=== PATIENT | female | born 1965 | race Caucasian/White ===

== ENCOUNTER → 2022-06-07 | Outpatient (CLI) | payer BC, SELFPAY ==
[2022-06-15 09:40] LABS: HPV APTIMA, High Risk Negative (Negative)
== END | disposition home or self-care (01) ==
PROVIDERS: PCP Obstetrics & Gynecology; Visit Provider Obstetrics & Gynecology
DX: Z12.4 Encounter for screening for malignant neoplasm of cervix (principal)
CPT/HCPCS: 87624; 88175; G0145

== ENCOUNTER → 2022-10-04 | Outpatient (CLI) | payer BC, SELFPAY ==
--- NOTE | 2022-10-04 09:45 | BI_ITS ---
MAMMOGRAPHY - BILATERAL SCREENING 3-D TOMOSYNTHESIS REASON FOR EXAM: Female, 56 years old. SCREENING PERTINENT HISTORY: Aunt with breast cancer, implants.. TECHNIQUE: 2-D mammograms and 3-D Tomosynthesis of the breast (s) were performed, along with implant displaced views. CAD was performed. COMPARISON: 2018 FINDINGS: The breast composition is composed of scattered fibroglandular density. Scattered benign calcifications are seen. No dense spiculated masses or suspicious microcalcifications are identified. No architectural distortion is identified. There is no skin thickening or retraction. There has been no significant change since the prior study. Implants are intact and free of complication BI/SCRN MAMM (CAD)W/JERAD BILAT IMPRESSION: No mammographic signs of malignancy. Routine yearly mammograms recommended. ASSESSMENT CATEGORY: BIRADS Category 1: Negative. A letter regarding these results will be sent to the patient by the facility within 30 days. FOLLOW UP RECOMMENDATION: Yearly follow up mammogram recommended. (A) Approximately 10% of breast cancers are not detected by mammography. A normal mammogram should not delay biopsy of a clinically suspicious abnormality. Electronically Signed: Kirk De La Paz MD at 12:17 EDT ,
== END | disposition home or self-care (01) ==
LOC: OPBI 09:42
PROVIDERS: PCP Obstetrics & Gynecology; Referring Provider Obstetrics & Gynecology; Visit Provider Obstetrics & Gynecology
DX: Z12.31 Encounter for screening mammogram for malignant neoplasm of breast (principal)
CPT/HCPCS: 77063; 77067

== ENCOUNTER → 2023-10-08 | Outpatient (CLI) | payer BC, SELFPAY ==
--- NOTE | 2023-10-08 12:11 | BI_ITS ---
MAMMOGRAPHY - BILATERAL SCREENING REASON FOR EXAM: Female, 57 years old. Routine annual screening examination. PERTINENT HISTORY: Aunt with breast cancer. Bilateral breast implants. TECHNIQUE: Digital bilateral breast jerad (3D mammographic acquisition) in the CC and MLO projections. 2-D mediolateral oblique (MLO) and craniocaudad (CC) views of both breasts were obtained. CAD: Full Field Digital Mammography with Computer Added Detection was performed. COMPARISON: Comparison is made with prior study dated October 04, 2022. FINDINGS: Breast Composition: There are scattered areas of fibroglandular density. There are no dominant masses or suspicious calcifications. Stable appearance of the bilateral breast implants. No other significant abnormalities are identified. There has been no significant change since the prior study. BI/SCRN MAMM (CAD)W/JERAD BILAT IMPRESSION: Stable bilateral screening mammogram. Yearly follow-up mammogram recommended. (A) ASSESSMENT CATEGORY: BIRADS Category 2: Benign. A letter regarding these results will be sent to the patient by the facility within 30 days. Approximately 10% of breast cancers are not detected by mammography. A normal mammogram should not delay biopsy of a clinically suspicious abnormality. [id number] Electronically Signed: Josh Whipple MD at 13:41 EDT ,
== END | disposition home or self-care (01) ==
LOC: OPBI 12:11
PROVIDERS: PCP Obstetrics & Gynecology; Referring Provider Nurse Practitioner Family; Visit Provider Nurse Practitioner Family
DX: Z12.31 Encounter for screening mammogram for malignant neoplasm of breast (principal)
CPT/HCPCS: 77063; 77067

== ENCOUNTER → 2025-01-25 | Outpatient (CLI) | payer BC, SELFPAY ==
--- NOTE | 2025-01-25 14:00 | RAD_ITS ---
PROCEDURE: CERV SPINE 4 OR 5 VIEWS 01/25/2025 REASON FOR EXAM: NECK PAIN TECHNIQUE: Procedure Code: [facility] Modality: DX Procedure: CERV SPINE 4 OR 5 VIEWS COMPARISON: None. FINDINGS: BONES: No fracture or focal osseous lesion. Anatomic spinal alignment. DISC/DEGENERATIVE CHANGES: Moderate disc space narrowing at C5-C6. The remaining disc spaces are preserved. Multilevel facet arthropathy, most pronounced on the right at C4-C5. Bony narrowing of the right C4-C5 and left C5-C6 neural foramen. SOFT TISSUES: Carotid artery calcification seen bilaterally. RAD/Cerv Spine 4 or 5 Views IMPRESSION: 1. No acute osseous abnormality. 2. Degenerative changes of the spine. Reading Location: [id number]
[2025-01-25 14:50] LABS: Creatinine, Urine (random) 125.00 mg/dL (28.00-217.00); Microalbumin,Random Urine 243.0 mg/L (<20 mg/L)
[2025-01-25 15:09] LABS: Vitamin D,25 Hydroxy 58.7 ng/mL (30-100)
== END | disposition home or self-care (01) ==
PROVIDERS: PCP Internal Medicine; Referring Provider Internal Medicine; Visit Provider Internal Medicine
DX: M54.2 Cervicalgia (principal); E11.9 Type 2 diabetes mellitus without complications; G44.52 New daily persistent headache (NDPH); E55.9 Vitamin D deficiency, unspecified
CPT/HCPCS: 36415; 72050; 82043; 82306; 82570; 85652

== ENCOUNTER → 2025-02-25 | Outpatient (CLI) | payer BC, SELFPAY ==
--- OUTSIDE RECORDS SUMMARY | 2025-02-25 06:57 | XMS RPT_ITS | CCD ---
Author Organization [facility] Team Providers Care Channel Business Manager Name Role Phone NEL TRINH, (WEB SERVICES DEVELOPER) Unavailable Unavaila ble BURESSHUN Unavailable Unavailable BURES, SHUN Garcia Unavailable Unavailable Bures, Shun Unavailable Unavailable Bures, Shun Garcia Unavailable Unavailable Bures, Shun Unavailable Unavailable MontanaLeland Unavailable Unavailable Shun Rivers Unavailable Unavailable Unavailable Tita, Dr. Shun Fletcher Primary Care Unavaila ble Burelita, Dr. Shun Fletcher Attending Unavaila ble Bures, Dr. Shun Fletcher Referring Unavaila ble BURESHUN London Primary Care Unavailable BURESHUN London Attending Unavailable SHUN RIVERS Primary Care Unavailable BureShun london DO Primary Care Provider Dr. Josh Booker MD Primary Care Provider Dr. Jsoh Booker MD Referring Provider Ana BLACK OXIDE COATING EQUIPMENT TENDER-CDiane Attending Provider Fara BL[employer] COATING EQUIPMENT TENDER-CDora Attending Provider [phone] Dr. Josh Booker MD Primary Care Physician Ana BLACK [employer] COATING EQUIPMENT TENDER-CDiane Attending Physician Fara BLACK [employer] COATING EQUIPMENT TENDER-CDora Attending Physician Altagracia LENNON, Dr. Vega Attending Physician Josh Booker Referring Unavailable Diane Perez Attending Unavailable Josh Booker Primary Care Unavailable Josh Booker Referring Unavailable Dora Chaudhari Attending Unavailable Josh Booker Primary Care Unavailable Josh Booker Referring Unavailable Silvia Frias Attending Unavailable Josh Booker Primary Care Unavailable Silvia Frias Primary Care Unavailable Silvia Frias Attending Unavailable Silvia Frias Referring Unavailable Allergies Allergy Classification Reported Allergen(s) Allergy Type Date of Onset Reaction(s) Facility (20 sources) codeine; Translations: [CODEINE] Drug Allergy 03-20-2004 Unknown [facility] Other [facility] Comment on above: +itching Medications Current Medications Medication Drug Class(es) Dates Sig (Normalized) Sig (Original) aspirin 81 mg delayed release oral tablet (2 sources) Platelet Aggregation Inhibitor, Nonsteroidal Anti-inflammatory Drug Start: 10-13-2024 Aspirin (Adult Low Dose Aspirin) 81 mg tablet,delayed release (DR/EC) Active 81 mg PO daily October 13, 2024 12:00am Complies with drug therapy estradiol 0.1 mg/ml vaginal cream (2 sources) Estrogen Start: 09-09-2024 Estradiol 0.01 % (0.1 mg/gram) cream Active 0 VAGINAL DAILY 42.5 0 September 09, 2024 12:00am pea sized amount using finger tip method every night x 2 weeks then 2-3 times a week there after. Complies with drug therapy hyoscyamine sulfate 0.125 mg disintegrating oral tablet (11 sources) Start: 10-13-2024 take 1 tablet by mouth every four hours as needed Hyoscyamine Sulfate 0.125 mg tablet,disintegra ting Active 0.125 mg PO EVERY 4 HOURS as needed October 13, 2024 12:00am Complies with drug therapy Start: 10-07-2023 take 1 tablet by marti th every four hours hyoscyamine 0.125 mg disintegrating tablet Indications: Irritable bowel syndrome without diarrhea Take 1 tablet (0.125 mg) by mouth every 4 hours if needed (ibs). 100 tablet 3 10/07/2023 Active Start: 07-25-2022 End: 10-07-2023 hyoscyamine 0.125 mg SL tabl et Indications: Irritable bowel syndrome without diarrhea PLACE 1 TABLET UNDER THE TONGUE EVERY 4 TO 6 HOURS NEEDED. 100 tablet 3 07/25/2022 10/07/2023 Discontinued (Reorder) Start: 05-15-2014 take 1 tablet under the tongue every four to six hours as needed Hyoscyamine Sulfate 0.125 MG Sublingual Tablet Sublingual PLACE 1 TABLET UNDER THE TONGUE EVERY 4 TO 6 HOURS NEEDED. Quantity: 100 Refills: 3 Ordered: 19-Jul-2021 Shun Rivers DO Start : 15-May-2014 Active Hyoscyamine Sulfate 0.125 mg tablet,disintegrating (1 source) Start: 10-13-2024 take 1 tablet by mouth every four hours as needed Hyoscyamine Sulfate 0.125 mg tablet,disintegrating Active 0.125 mg PO EVERY 4 HOURS as needed October 13, 2024 12:00am loperamide hydrochloride 2 mg oral capsule (8 sources) Opioid Agonist Start: 07-19-2021 End: 10-07-2023 loperamide (Imodium) 2 mg capsule Take by mouth. 07/19/2021 10/07/2023 Discontinued (Therapy completed) 24 hr metFORMIN hydrochloride 500 mg extended release oral tablet (20 sources) Biguanide Start: 12-22-2024 take 1 tablet by mouth once daily Metformin (Glucophage Xr) 500 mg tablet extended release 24 hr Active 500 mg PO daily 90 0 December 22, 2024 12:00am Complies with drug therapy Start: 08-02-2016 End: 12-22-2024 take 1 tablet by mouth once daily Metformin 500 mg tablet Discontinued 500 mg PO daily 90 0 October 13, 2024 3:00pm December 22, 2024 11:59am Start: 08-02-2016 take 1 tablet by marti th every twelve hours at mealtime metFORMIN HCl - 500 MG Oral Tablet TAKE 1 TABLET EVERY 12 HOURS WITH FOOD. Quantity: 180 Refills: 3 Shun Rivers DO Start : 02-Aug-2016 Active Mrpqsmzo-Uvt-Eufc-Fa-Vit K-Lut (Multivitamin Women 50 Plus) 8 mg iron-400 mcg-50 mcg tablet (2 sources) Start: 10-13-2024 take 1 tablet by mouth once daily Inqbrymn-Ajl-Xzpi-Fa-Vit K-Lut (Multivitamin Women 50 Plus) 8 mg iron-400 mcg-50 mcg tablet Active 1 {tbl} PO daily October 13, 2024 12:00am Complies with drug therapy Start: 10-13-2024 take 1 tablet by marti th once daily Isbdznsi-Yum-Oveo-Fa-Vit K-Lut (Multivitamin Women 50 Plus) 8 mg iron-400 mcg-50 mcg tablet Active 1 {tbl} PO daily October 13, 2024 12:00am promethazine hydrochloride 25 mg oral tablet (20 sources) Phenothiazine Start: 10-13-2024 take 1 tablet by mouth every eight hours as needed for nausea Promethazine 25 mg tablet Active 25 mg PO EVERY 8 HOURS as needed for nausea/vomiting October 13, 2024 12:00am Complies with drug therapy Start: 10-07-2023 take 1 tablet by marti th every eight hours for nausea promethazine (Phenergan) 25 mg tablet Indications: Irritable bowel syndrome, unspecified type Take 1 tablet (25 mg) by mouth every 8 hours if needed for nausea or vomiting. 30 tablet 2 10/07/2023 Active Start: 08-28-2016 End: 10-07-2023 promethazine (Phenergan) 25 mg tablet Take by mouth. 08/28/2016 10/07/2023 Discontinued (Reorder) rosuvastatin calcium 40 mg oral tablet (20 sources) HMG-CoA Reductase Inhibitor Start: 03-08-2016 End: 10-13-2024 take 1 tablet by mouth once daily Rosuvastatin 40 mg tablet Active 40 mg PO daily 90 0 October 13, 2024 3:00pm Complies with drug therapy Semaglutide (4 sources) Start: 12-22-2024 Semaglutide 0. 25 mg or 0.5 mg (2 mg/3 mL) pen injector Active 0.5 mg SC EVERY WEEK 9.568 90 0 December 22, 2024 11:59am March 21, 2025 1:00am Complies with drug therapy Start: 09-06-2023 End: 10-13-2024 Semaglutide (Ozempic) 0.25 m g or 0.5 mg (2 mg/3 mL) pen injector Discontinued 0.5 mg SC EVERY WEEK September 06, 2023 12:00am October 13, 2024 3:02pm Start: 09-06-2023 Semaglutide (O zempic) 0.25 mg or 0.5 mg (2 mg/3 mL) pen injector Active 0.5 mg SC EVERY WEEK September 06, 2023 12:00am semaglutide (Ozempic) 0.25 mg or 0.5 mg (2 mg/3 mL) pen injector (2 sources) Start: 10-13-2023 End: 10-12-2024 inject 0.5 mg by subcutaneous injection every week semaglutide (Ozempic) 0.25 mg or 0.5 mg (2 mg/3 mL) pen injector Indications: Type 2 diabetes mellitus with other specified complication, 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 9 mL 3 10/13/2023 10/12/2024 Active Start: 01-17-2023 End: 10-07-2023 semaglutide (Ozempic) 0.25 m g or 0.5 mg (2 mg/3 mL) pen injector Indications: Type 2 diabetes mellitus with other specified complication, unspecified 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 (Multi) INJECT 0.5MG UNDER THE SKIN EVERY 7 DAYS 9 mL 3 01/17/2023 10/07/2023 Discontinued (Reorder) Completed/Discontinued Medications Medication Drug Class(es) Dates Sig (Normalized) Sig (Original) canagliflozin 100 mg oral tablet (11 sources) Sodium-Glucose Cotransporter 2 Inhibitor Start: 12-31-2018 take 1 tablet by mouth once daily Invokana 100 MG Oral Tablet TAKE 1 TABLET BY MOUTH EVERY DAY Quantity: 90 Refills: 3 Shun Rivers DO Start : 31-Dec-2018 Active Start: 11-06-2016 take 1 tablet by marti th once daily Invokana 100 MG Oral Tablet one daily Quantity: 90 Refills: 1 Shun Rivers DO Start : 06-Nov-2016 Active Start: 11-06-2016 take 1 tablet by marti th once daily Invokana 300 MG Oral Tablet TAKE 1 TABLET BY MOUTH EVERY DAY Quantity: 90 Refills: 1 Shun Rivers DO Start : 06-Nov-2016 Active Estriol (3 sources) Start: 09-06-2023 End: 09-09-2024 Estriol (Bulk) 100 % powder Discontinued 1 NMA MC TWICE A WEEK September 06, 2023 12:00am September 09, 2024 1:52pm fenofibrate 160 mg oral tablet (20 sources) Peroxisome Proliferator Receptor alpha Agonist Start: 05-06-2015 End: 09-09-2024 take 1 tablet by mouth once daily Fenofibrate 160 mg tablet Discontinued 160 mg PO daily September 06, 2023 12:00am September 09, 2024 1:52pm Suprep Bowel Prep Kit 17.5-3.13-1.6 GM/177ML Oral Solution (1 source) Start: 05-16-2020 Suprep Bowel P rep Kit 17.5-3.13-1.6 GM/177ML Oral Solution USE DIRECTED. Quantity: 1 Refills: 0 Leland Boyle MD Start : 16-May-2020 Active 2 x 177 ML Bottle Paxlovid (300/100) 20 x 150 MG & 10 x 100MG Oral Tablet Therapy Pack (2 sources) Start: 01-09-2022 End: 01-25-2022 take 1 tablet by mouth twice daily Paxlovid (300/100) 20 x 150 MG & 10 x 100MG Oral Tablet Therapy Pack TAKE 1 DOSE BY MOUTH TWICE DAILY FOR 5 DAYS DIRECTED. MUST START WITHIN 1ST 5 DAYS OF SYMPTOMS. Quantity: 30 Refills: 0 Ordered: 09-Jan-2022 Shun Rivers DO Start : 09-Jan-2022 End : 25-Jan-2022 Complete gfr 87 Start: 01-09-2022 take 1 tablet by marti twice daily Paxlovid (300/100) 20 x 150 MG & 10 x 100MG Oral Tablet Therapy Pack TAKE 1 DOSE BY MOUTH TWICE DAILY FOR 5 DAYS DIRECTED. MUST START WITHIN 1ST 5 DAYS OF SYMPTOMS. Quantity: 30 Refills: 0 Ordered: 09-Jan-2022 Shun Rivers DO Start : 09-Jan-2022 Active gfr 87 0.25 mg, 0.5 mg dose 1.5 ml semaglutide 1.34 mg/ml pen injector (11 sources) Start: 09-24-2019 Ozempic (0.25 or 0.5 MG/DOSE) 2 MG/1.5ML Subcutaneous Solution Pen-injector Inject 0.5mg once weekly Quantity: 3 Refills: 3 Ordered: 21-Dec-2021 Shun Rivers DO Start : 24-Sep-2019 Active Start: 09-24-2019 inject 0.25 mg by lynn bcutaneous injection every week, then inject 0.5 mg by subcutaneous injection every week Ozempic (0.25 or 0.5 MG/DOSE) 2 MG/1.5ML Subcutaneous Solution Pen-injector inject 0.25 mg SC once per week for 4 weeks, then 0.5mg SC per week Quantity: 2 Refills: 2 Shun Rivers DO Start : 24-Sep-2019 Active 1.5 ML Pen Semaglutide (1 source) Start: 10-13-2024 End: 12-22-2024 Semaglutide 1 mg/dose (4 mg/ 3 mL) pen injector Discontinued 1 mg SC EVERY WEEK 3 2 October 13, 2024 3:00pm December 22, 2024 12:24pm Problems Active Problems Problem Classification Problem Date Documented Da te Episodic/Chronic Administrative/social admission (3 sources) Patient encounter status; Translations: [Persons encountering health services in other specified circumstances] 12-21-2024 Episodic Anxiety disorders (18 sources) Anxiety; Translations: [Anxiety state, unspecified] Onset: 07-24-2022 07-24-2022 Chronic Diabetes mellitus with complications (5 sources) Type 2 diabetes mellitus with other specified complication; Translations: [Type 2 diabetes mellitus] Onset: 07-24-2022 Chronic Diabetes mellitus without complication (20 sources) Diabetes mellitus; Translations: [Diabetes mellitus without mention of complication, type II or unspecified type, not stated as uncontrolled] Onset: 07-24-2022 10-07-2023 Chronic Comment on above: Hemoglobin A1c 6.1 t adin. States her normal is around 5-5.5 Diseases of white blood cells (18 sources) Leukocytosis; Translations: [Leukocytosis, unspecified] Onset: 07-24-2022 10-07-2023 Chronic Disorders of lipid metabolism (20 sources) Hyperlipidemia; Translations: [Other and unspecified hyperlipidemia] Onset: 07-24-2022 Chronic Genitourinary symptoms and ill-defined conditions (8 sources) Incontinence; Translations: [Mixed incontinence] 09-06-2023 Chronic Headache; including migraine (18 sources) Migraine; Translations: [Migraine, unspecified, without mention of intractable migraine without mention of status migrainosus] Onset: 07-24-2022 10-07-2023 Chronic Headache; including migraine (3 sources) Frequent headache; Translations: [Frequent headaches] 10-13-2024 Episodic Headache; including migraine (2 sources) Headache; including migraine; Translations: [Headache, unspecified] Onset: 12-22-2024 Malaise and fatigue (3 sources) Fatigue; Translations: [Other fatigue] 09-06-2023 Episodic Menopausal disorders (20 sources) Menopausal symptom; Translations: [Symptomatic menopausal or female climacteric states] Onset: 07-24-2022 10-07-2023 Chronic Nutritional deficiencies (20 sources) Vitamin D deficiency; Translations: [Unspecified vitamin D deficiency] Onset: 07-24-2022 Chronic Nutritional deficiencies (20 sources) Cobalamin deficiency; Translations: [Other B-complex deficiencies] Onset: 07-24-2022 Episodic Other gastrointestinal disorders (19 sources) Irritable bowel syndrome; Translations: [Irritable bowel syndrome] Onset: 07-24-2022 10-07-2023 Chronic Other gastrointestinal disorders (2 sources) Irritable bowel syndrome without diarrhea; Translations: [Irritable bowel syndrome without diarrhea] Onset: 07-24-2022 Chronic Other nutritional; endocrine; and metabolic disorders (19 sources) Hypercalcemia; Translations: [Hypercalcemia] Onset: 07-24-2022 Chronic Other nutritional; endocrine; and metabolic disorders (1 source) Hypercalcemia; Translations: [Hypercalcemia] Onset: 07-24-2022 Chronic Residual codes; unclassified (2 sources) Influenza vaccination declined; Translations: [Immunization not carried out because of patient refusal] 12-22-2024 Episodic Spondylosis; intervertebral disc disorders; other back problems (2 sources) Cervicalgia; Translations: [Cervicalgia] Onset: 12-22-2024 Episodic Unclassified (20 sources) Other abnormal and inconclusive findings on diagnostic imaging of breast; Translations: [Mammography abnormal] Onset: 04-02-2017 Episodic Unclassified (6 sources) Mixed stress and urge incontinence; Translations: [N39.46 - Mixed incontinence] Past or Other Problems Problem Classification Problem Date Documented Da te Episodic/Chronic Medical examination/evaluation (1 source) Encounter for general adult medical examination without abnormal findings; Translations: [Encounter for general adult medical examination without abnormal findings] Onset: 01-14-2017 Episodic Mycoses (17 sources) Mycosis; Translations: [Candidiasis of unspecified site] Resolved: 08-02-2016 Episodic Nausea and vomiting (18 sources) Nausea; Translations: [Nausea alone] Onset: 07-24-2022 07-24-2022 Episodic Nonspecific chest pain (9 sources) Atypical chest pain; Translations: [Other chest pain] Onset: 07-24-2022 07-24-2022 Episodic Other bone disease and musculoskeletal deformities (17 sources) Costal chondritis; Translations: [Tietze's disease] Resolved: 09-09-2018 Episodic Other gastrointestinal disorders (9 sources) Stool DNA-based colorectal cancer screening positive; Translations: [Abnormal feces] Onset: 07-24-2022 07-24-2022 Episodic Other lower respiratory disease (11 sources) H/O: respiratory disease; Translations: [Personal history of other diseases of respiratory system] Resolved: 09-24-2019 Episodic Unclassified (17 sources) Patient encounter status; Translations: [Screening for thyroid disorder] Unclassified (4 sources) Screening status; Translations: [Screening for thyroid disorder] Unclassified (1 source) Onset: 10-07-2023 10-07-2023 Viral infection (4 sources) Disease caused by 2019-nCoV; Translations: [Other specified viral infection] Onset: 03-20-2004 10-07-2023 Episodic NEGATED: Highlighted row has not occurred!Residual codes; unclassified (20 sources) Disease Episodic Results Test Name Value Interpretation Reference Range Facility Cerv Spine 4 or 5 Viewson Cerv Spine 4 or 5 Views [facility] Imaging Services [address] [place] [address] [id number] Cerv Spine 4 or 5 Views MR#: [id number] Acct: [id number] Name: ARIELA CRENSHAW DAISHA Rep #: [id number] : 1965 F 59 From: Hailee Hough MD PCP: Dr. Silvia Frias MD Status: REG CLI Study: Cerv Spine 4 or 5 Views Date of Exam: 01/25/25 Exam# [id number] Ordering Dr: Silvia Frias MD PROCEDURE: CERV SPINE 4 OR 5 VIEWS 01/25/2025 REASON FOR EXAM: NECK PAIN TECHNIQUE: Procedure Code: RADSPC Modality: DX Procedure: CERV SPINE 4 OR 5 VIEWS COMPARISON: None. FINDINGS: BONES: No fracture or focal osseous lesion. Anatomic spinal alignment. DISC/DEGENERATIVE CHANGES: Moderate disc space narrowing at C5-C6. The remaining disc spaces are preserved. Multilevel facet arthropathy, most pronounced on the right at C4-C5. Bony narrowing of the right C4-C5 and left C5-C6 neural foramen. SOFT TISSUES: Carotid artery calcification seen bilaterally. RAD/Cerv Spine 4 or 5 Views IMPRESSION: 1. No acute osseous abnormality. 2. Degenerative changes of the spine. Reading Location: [id number] CC: Dr. Silvia Frias MD Repair Manager: Signed Normal [facility] Erythrocyte Sed Rateon 01-25 SED RATE 6 mm/hr Normal 0-30 [facility] Comment on above: Performed By: #### L 502.0250, L506.1001, L101.9900 #### [facility] [address] [place], [address] Microalb:Creat Ratio,Random URon 01-25-2025 Creatinine [Mass/Vol] 125.00 mg/dL Normal 28.00-217.00 [facility] Comment on above: Performed By: #### L 502.0250, L506.1001, L101.9900 #### [facility] [address] [place], [address] MALB:CREAT 194.4 mg/g CRE High <30 mg/g CRE [facility] Comment on above: Performed By: #### L 502.0250, L506.1001, L101.9900 #### [facility] [address] [place], [address] MICROALBUMIN,UR 243.0 mg/L Normal <20 mg/L [facility] Comment on above: Performed By: #### L 502.0250, L506.1001, L101.9900 #### [facility] [address] [place], [address] Vitamin D,25 Hydroxyon 01-25 Vitamin D 25-OH 58.7 ng/mL Normal 30-100 [facility] Comment on above: Result Comment: Rosana min D Status Deficiency: <20 ng/mL (50nmol/L) Insufficiency: 20-30 ng/mL (50-75 nmol/L) Sufficiency: 30-100 ng/mL (75-250 nmol/L) Toxicity: >100 ng/mL (>250 nmol/L) Performed By: #### L 502.0250, L506.1001, L101.9900 #### [facility] [address] [place], [address] Internal Medicine Office Vis iton 12-21-2024 Internal Medicine Office Visit [facility] Internal Medicine [address] [place] [address] [place] [address] OFFICE VISIT Date of Service: 12/22/24 MR#: [id number] Acct: [id number] Name: ARIELA CRENSHAW Rep #: [id number] : 1965 Provider: Dr. 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 E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 SENT Mechanical Service Representative Required: No Is patient in pain?: No Allergies codeine Allergy (Verified 12/22/24 11:28) Hives Medications ???Medication ???Instructions ???Recorded ???Confirmed ???Type estradiol 0.01% (0.1 mg/gram) See Rx Instructions vaginal DAILY 09/09/24 12/22/24 Rx vaginal cream #42.5 grams aspirin 81 mg tablet,delayed 81 mg PO QDAY 10/13/24 12/22/24 Hi story release (Adult Low Dose Aspirin) hyoscyamine sulfate 0.125 mg 0.125 mg PO Q4 PRN 10/13/24 History disintegrating tablet melspptl-xmud-jcim 8 mg-folic 400 1 tab PO QDAY 10/13/24 12/22/24 H istory mcg-K 50 mcg-lutein 300 mcg tablet (Multivitamin Women 50 Plus) promethazine 25 mg tablet 25 mg PO Q8 PRN nausea/vomiting 12/22/24 History rosuvastatin 40 mg tablet 40 mg PO QDAY #90 tabs 10/13/24 Rx cyclobenzaprine 5 mg tablet 5 mg PO BID PRN muscle spasm #10 1 12/22/24 Rx tabs metformin 500 mg tablet,extended 500 mg PO QDAY #90 tabs 12/22/24 1 Rx release 24 hr (Glucophage XR) semaglutide 0.25 mg or 0.5 mg (2 0.5 mg (0.736 mL) subcut QWEEK 3 1 12/22/24 Rx mg/3 mL) subcutaneous pen injector months #9.568 mL Nurse's Note: Pt states she was having up and downs w/ BG's she states she wants to go back on previous meds for DM. As the ozempic was a lower dose and metformin was not. Pt saw for previous pcp see's no other specialists. She states she had a mammogram last year which was WNL, and has never had a low dose chest CT [facility] Surgical History S/P colonoscopy Hx of breast implants, bilateral History of hysterectomy Family History Mother Depression Diabetes Hypertension High cholesterol Other Heart disease Social History (Updated 12/22/24 @ 11:[address] Silvia Frias MD) adopted: No household members: spouse number of children: 3 service: No current occupational status: unemployed pets and animals: Yes (1) pets and animals: dog(s) sexually active: Yes do you think of yourself as: straight/heterosexual current gender identity: female Smoking Status: Current every day smoker tobacco type: cigarettes Smoking packs per day: 1.5 Smoking cigarettes per day: 30.0 Tobacco: How many years used: 46 quit status: not considering quitting alcohol intake: never substance use type: does not use caffeine: Yes (1-4qd) Type: tea what type of physical activity do you participate in: none frequency: does not exercise seatbelt use: always do you feel safe at home: Yes additional social history: [facility] [place] [facility] [place]ito Label Pinker Questionnaire PQH-9 BMS Over the last 2 weeks, how often have you been bothered by any of the following problems? 1. Little interest or pleasure in doing things: not at all 2. Feeling down, depressed, or hopeless: not at all 3. Trouble falling or staying asleep, or sleeping too much: several days 4. Feeling tired or having little energy: several days 5. Poor appetite or overeating: not at all 6. Feeling bad about yourself - or that you are a failure or have let yourself and your family down: not at all 7. Trouble concentrating on things, such as reading the newspaper or watching television: not at all 8. Moving or speaking so slowly that other people could have noticed? - Or the opposite - being so fidgety or restless that you have been moving around a lot more than usual: not at all 9. Thoughts that you would be better off or of hurting yourself in some way: not at all Total score: 2 If you checked off any problems, how difficult have these problems made it for you to do your work, take care of things at home, or get along with other people?: not difficult at all Source: Developed by Drs. Ludin Christianson, Cat Bess, Anam Ellington and colleagues, with an educational whitney from [employer]. DAVID-7 [facility] [place]ID-7 Feeling nervous, anxious, or on edge: 0 = Not at all Not being able to stop or control worryin = Not at al (more content not included)... Normal [facility] Internal Medicine Office Vis caitlyn 10-13-2024 Internal Medicine Office Visit [facility] [address] [place] [address] [place] [address] OFFICE VISIT Date of Service: 10/13/24 MR#: [id number] Acct: [id number] Name: ARIELA CRENSHAW Rep #: [id number] : 1965 Provider: SARBJIT del rio Age/Sex: 58/F Location[place] [facility] Status: Signed Intake Vital Signs 09/09/24 13:50 10/13/24 14:08 Height 5 ft 10 in 5 ft 10 in Weight: 150 lb 8 oz 149 lb BMI 21.6 21.4 BP 121/57 H 96/52 L Blood Pressure Location Lt brachial Position Sitting Respiration 14 Pulse 100 Pulse Source Monitor Temp 96.9 F L Temp Source Temporal Pulse Oximetry (%) 95 Oxygen Delivery Method room air Intake Visit Reasons: EST NEW PT - FOR MEDS - W ALTAGRACIA IN OCT Mechanical Service Representative Required: No Accompanied by: Self Is patient in pain?: No Allergies codeine Allergy (Verified 10/13/24 14:00) Hives Medications ???Medication ???Instructions ???Recorded ???Confirmed ???Type estradiol 0.01% (0.1 mg/gram) See Rx Instructions vaginal DAILY 09/09/24 09/09/24 Rx vaginal cream #42.5 grams aspirin 81 mg tablet,delayed 81 mg PO QDAY 10/13/24 10/13/24 Hi story release (Adult Low Dose Aspirin) hyoscyamine sulfate 0.125 mg 0.125 mg PO Q4 PRN 10/13/24 History disintegrating tablet metformin 500 mg tablet 500 mg PO QDAY #90 tabs 10/13/24 0 10/13/24 Rx uddzaqln-gepn-xivo 8 mg-folic 400 1 tab PO QDAY 10/13/24 10/13/24 H istory mcg-K 50 mcg-lutein 300 mcg tablet (Multivitamin Women 50 Plus) promethazine 25 mg tablet 25 mg PO Q8 PRN nausea/vomiting 10/13/24 History rosuvastatin 40 mg tablet 40 mg PO QDAY #90 tabs 10/13/24 Rx semaglutide 1 mg/dose (4 mg/3 mL) 1 mg (0.75 mL) subcut QWEEK #3 mL 10/13/24 10/13/24 Rx subcutaneous pen injector PFSH Surgical History Hx of breast implants, bilateral History of hysterectomy Family History (Updated 10/13/24 @ 13:58 by Dora Pepper) Mother Depression Diabetes Hypertension High cholesterol Other Heart disease Social History current occupational status: unemployed Smoking Status: Current every day smoker alcohol intake: never substance use type: does not use caffeine: No what type of physical activity do you participate in: none seatbelt use: always do you feel safe at home: Yes 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 She was seeing PCP in [place] and last saw them last year. She is due for some routine blood work . She is not due for any vaccines. Patient is scheduled for mammogram next month. States she has never had an abnormal mammogram. Patient states last colonoscopy was 3 years ago she states that 1 polyp was removed but it was noncancerous. She is a smoker and need needs refills on medications today. She reports she is eating healthy and is staying active. The patient has been on cholesterol and diabetes medication for several years. She does check her blood sugar at home and reports it has been somewhat elevated. Recently. She states if her blood sugars at 124 or higher she starts to notice symptoms. Symptoms include increased thirst nausea sweating and shakiness. She states she has been increasing her metformin to twice a day if she notices her blood sugars are high states this is done maybe 2 or 3 times a week. She does have GI side effects if taking 1000 mg of metformin at 1 time. Patient states she has not tried extended release metformin. She is taking her medication as prescribed without problems. She states she does have a history of migraine headaches. She will also be seeing a urologist due to incontinence in October. She is taking her medication as prescribed without problems. She denies any current problems with chest pain, palpitations or shortness of breath. She has no further questions or concerns at this time. ROS Const Constitutional: Positive for excessive sweating, headache(s) and change in appetite (depending on blood sugars); No body ache, chills, fatigue, fever(s), frequent falls, night sweats, snoring, weakness or sleep problems Eyes Eyes: Positive for blurry vision; No change in vision, dry eyes, eye pain or Light sensitivity ENT ENT: Positive for sinus pressure (frequent sinus headaches depending on enviromental factors), headache(s) and neck pain; No abnormal hearing, ear or mastoid pain, tinnitus, dizziness/vertigo, balance problems, nasal congestion, sinus pain, dry mouth, difficulty swallowing or sore throat Resp Respiratory: No cough, chest congestion, shortness of breath, snoring or wheezing Cardio Cardiology: Positive for excessive sweating; No chest pain at rest, chest (more content not included)... Normal [facility] - Hematology and Cell countsOrdered By: Dora Chaudhari on 10-13-2024 HbA1c (Bld) [Mass fraction] 6.1 % 4.2-6.3 [facility] [employer] Mechan[employer] Office Visit Reporton 09-09-2024 [employer] Mechan[employer] Office Visit Report [facility] [address], [address] [place] [address] OFFICE VISIT Date of Service: 09/09/24 MR#: [id number] Acct: [id number] Name: ARIELA CRENSHAW Rep #: [id number] : 1965 Provider: SARBJIT Brooke Age/Sex: 58/F Location: [facility] Status: Signed Intake Vital Signs 09/06/23 11:04 09/09/24 13:50 Height 5 ft 10 in 5 ft 10 in Weight: 150 lb 8 oz BMI 21.6 BP 121/57 H 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 Is patient in pain?: No Allergies codeine Allergy (Verified 09/09/24 13:51) Hives Medications ???Medication ???Instructions ???Recorded ???Confirmed ???Type metformin 500 mg tablet 500 mg PO QDAY 09/06/23 09/09/24 H istory rosuvastatin 40 mg tablet 40 mg PO QDAY 09/06/23 09/09/24 Hi story semaglutide 0.25 mg or 0.5 mg (2 0.5 mg subcut QWEEK 09/06/2309/09 History mg/3 mL) subcutaneous pen injector (Ozempic) estradiol 0.01% (0.1 mg/gram) See Rx Instructions vaginal DAILY 09/09/24 09/09/24 Rx vaginal cream #42.5 grams Is last menstrual period known: No Patient : No : No PFSH Surgical History Hx of breast implants, bilateral History of hysterectomy Family History Other Heart disease Social History current occupational status: unemployed Smoking Status: Current every day smoker alcohol intake: never substance use type: does not use caffeine: No what type of physical activity do you participate in: none seatbelt use: always do you feel safe at home: Yes 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 Date Name GA/Weeks Outcome Route Bth Weight Infant Gen Labor Lgth Anesthesia Del Locatn Provider FOB Unknown Tito Carreon Unknown Andre Unknown Ephraim HPI Encounter for routine gynecological examination Details: ARIELA CRENSHAW is a 58 year old who presents for annual exam. She reports she continues to have vaginal burning. Using estradiol cream; using inconsistently. She continues to smoke daily; has been smoking at least a pack a day for over 45 years. Last PAP: 2022, has had hyst; heavy bleeding prior. History of abnormal PAP: none Last mammogram: 2023 - normal History of abnormal mammogram: Colon cancer screening: Yes; 3-4 years ago. Other preventative health care screenings: Has appointment with [facility] in October Female Reproductive History Questions: metorrhagia: No, sexually active: Yes, dyspareunia: No and PCB: No Menopausal Treatment: Yes Vaginal Estrogen ROS Const Constitutional: Denies chills, fatigue, fever(s), headache(s) or weight loss Eyes Eyes: Denies change in vision ENT ENT: Denies dizziness Cardio Card: Denies chest pain Resp Resp: Denies cough GI GI: Denies abdominal pain, constipation or nausea : Reports urinary frequency, urinary incontinence and urinary urgency; Denies difficulty voiding, dysuria, hematuria, nipple discharge, pelvic pain, prolapse symptoms, vaginal discharge, vaginal dryness, vaginal odor or vaginal pruritus Skin Skin/Breast: Denies alopecia, rash, breast mass, breast pain, breast skin changes or nipple discharge Neuro Neuro: Denies dizziness Psych Psych: Denies anxiety or depression Endo Endo: Denies cold intolerance, excessive sweating or heat intolerance Exam Const General: cooperative, healthy appearing, no acute distress and well groomed Nutritional Appearance: well nourished Orientation: oriented x3 HENMT Head: normal to inspection and normocephalic Neck Thyroid: thyroid normal Chest Chest palpation inspection: normal inspection of the chest Breast inspection: normal inspection of the breasts and normal inspection of the axillae Breast palpation: normal palpation of the breasts, normal palpation of the axillae and no axillary lymphadenopathy Resp Effort Inspection: normal respiratory effort and able to speak in complete sentences GI Inspection: normal to inspection Palpation: soft and no hepatosplenomegaly External Female Exam: normal external appearance and normal appearance of the urethra Urethra: normal appearance of the urethra Speculum Exam - Vagina: normal appearance of the vagina, normal vaginal discharge, vagina atrophic, no lesions and nontender Speculum Exam - Cervix: absent Bimanual Exam- Vagina Uterus: normal bimanual exam and uterus absent Bimanual Exam- Adnexa, other: no masses Pelvic Support: other (l (more content not included)... Normal [facility] CBC W Auto Differential pane l (Bld)on 09-30-2023 Basophils (Bld) [#/Vol] 0.07 x10*3/uL Normal 0.00-0.10 [facility] Comment on above: Performed By: #### 5 7021-8 #### SHARDA DUMONT ([id number]) [facility] ([facility]) [address] [place] [address] 15076 Basophils/100 WBC (Bld) 0.7 % Normal 0.0-2.0 [facility] Comment on above: Performed By: #### 5 7021-8 #### SHARDA DUMONT ([id number]) [facility] ([facility]) [address] [place] [address] 92660 Eosinophils (Bld) [#/Vol] 0.82 x10*3/uL High 0.00-0.70 [facility] Comment on above: Performed By: #### 5 7021-8 #### SHARDA DUMONT ([id number]) [facility] ([facility]) [address] [place] [address] 53093 Eosinophils/100 WBC (Bld) 8.0 % Normal 0.0-6.0 [facility] Comment on above: Performed By: #### 5 7021-8 #### SHARDA DUMONT ([id number]) [facility] ([facility]) [address] [place] [address] 94434 Erythrocyte distribution width (RBC) [Ratio] 12.0 % Normal 11.5-14.5 [facility] Comment on above: Performed By: #### 5 7021-8 #### SHARDA DUMONT ([id number]) [facility] ([facility]) [address] [place] [address] 37290 Hematocrit (Bld) [Volume fraction] 46.9 % High 36.0-46.0 [facility] Comment on above: Performed By: #### 5 7021-8 #### SHARDA DUMONT ([id number]) [facility] ([facility]) [address] [place] [address] Hemoglobin (Bld) [Mass/Vol] 15.3 g/dL Normal 12.0-16.0 [facility] Comment on above: Performed By: #### 5 7021-8 #### SHARDA DUMONT ([id number]) [facility] ([facility]) [address] [place], [place] [address] Immature granulocytes (Bld) [#/Vol] 0.02 x10*3/uL Normal 0.00-0.70 [facility] Comment on above: Performed By: #### 5 7021-8 #### SHARDA DUMONT ([id number]) [facility] ([facility]) [address] [place], [place] [address] Immature granulocytes/100 WBC (Bld) 0.2 % Normal 0.0-0.9 [facility] Comment on above: Result Comment: Samantha ture Granulocyte Count (IG) includes promyelocytes, myelocytes and metamyelocytes but does not include bands. Percent differential counts (%) should be interpreted in the context of the absolute cell counts (cells/UL). Performed By: #### 5 7021-8 #### SHARDA DUMONT ([id number]) [facility] ([facility]) [address] [place] [address] 94282 Lymphocytes (Bld) [#/Vol] 3.98 x10*3/uL Normal 1.20-4.80 [facility] Comment on above: Performed By: #### 5 7021-8 #### SHARDA DUMONT ([id number]) [facility] ([facility]) [address] [place] [address] 16667 Lymphocytes/100 WBC (Bld) 38.8 % Normal 13.0-44.0 [facility] Comment on above: Performed By: #### 5 7021-8 #### SHARDA DUMONT ([id number]) [facility] ([facility]) [address] [place] [address] 49510 MCH (RBC) [Entitic mass] 33.0 pg Normal 26.0-34.0 [facility] Comment on above: Performed By: #### 5 7021-8 #### SHARDA DUMONT ([id number]) [facility] ([facility]) [address] [place] [address] 90239 MCHC (RBC) [Mass/Vol] 32.6 g/dL Normal 32.0-36.0 [facility] Comment on above: Performed By: #### 7021-8 #### SHARDA DUMONT ([id number]) [facility] ([facility]) [address] [place] [address] 89892 MCV (RBC) [Entitic vol] 101 fL High 80-100 [facility] Comment on above: Performed By: #### 7021-8 #### SHARDA DUMONT ([id number]) [facility] ([facility]) [address] [place] [address] 63759 Monocytes (Bld) [#/Vol] 0.56 x10*3/uL Normal 0.10-1.00 [facility] Comment on above: Performed By: #### 5 7021-8 #### SHARDA DUMONT ([id number]) [facility] ([facility]) [address] [place] [address] 10083 Monocytes/100 WBC (Bld) 5.5 % Normal 2.0-10.0 [facility] Comment on above: Performed By: #### 5 7021-8 #### SHARDA DUMONT ([id number]) [facility] ([facility]) [address] [place] [address] 26701 Neutrophils (Bld) [#/Vol] 4.80 x10*3/uL Normal 1.20-7.70 [facility] Comment on above: Result Comment: Perc ent differential counts (%) should be interpreted in the context of the absolute cell counts (cells/uL). Performed By: #### 5 7021-8 #### SHARDA DUMONT ([id number]) [facility] ([facility]) [address] [place] [address] 61458 Neutrophils/100 WBC (Bld) 46.8 % Normal 40.0-80.0 [facility] Comment on above: Performed By: #### 5 7021-8 #### SHARDA DUMONT ([id number]) [facility] ([facility]) [address] [place] [address] 15349 Nucleated RBC/100 WBC (Bld) [Ratio] 0.0 /100 WBCs Normal 0.0-0.0 [facility] Comment on above: Performed By: #### 5 7021-8 #### SHARDA DUMONT ([id number]) [facility] ([facility]) [address] [place] [address] 08239 Platelets (Bld) [#/Vol] 335 x10*3/uL Normal 150-450 [facility] Comment on above: Performed By: #### 5 7021-8 #### SHARDA DUMONT ([id number]) [facility] ([facility]) [address] [place] [address] 02995 RBC (Bld) [#/Vol] 4.63 x10*6/uL Normal 4.00-5.20 [facility] Comment on above: Performed By: #### 5 7021-8 #### SHARDA DUMONT ([id number]) [facility] ([facility]) [address] [place] [address] 47232 WBC (Bld) [#/Vol] 10.3 x10*3/uL Normal 4.4-11.3 [facility] Comment on above: Performed By: #### 5 7021-8 #### SHARDA DUMONT ([id number]) [facility] ([facility]) [address] [place] [address] 84256 Calcidiolon 09-30-2023 25-hydroxyvitamin D3 [Mass/Vol] 32 ng/mL Normal 30-100 [facility] Comment on above: Order Comment: Defic iency: < 20 ng/ml Insufficiency: 20-29 ng/ml Sufficiency: 30-100 ng/ml This assay accurately quantifies the sum of Vitamin D3, 25-Hydroxy and Vitamin D2,25-Hydroxy. Performed By: #### 1 989-3 #### SHARDA DUMONT ([id number]) [facility] ([facility]) [address] [place] [address] Cobalaminson 09-30-2023 Cobalamin (Vitamin B12) [Mass/Vol] 188 pg/mL Low 211-911 [facility] Comment on above: Performed By: #### 2 132-9 #### SHARDA DUMONT ([id number]) [facility] ([facility]) [address] [place], [place] [address] Comprehensive metabolic 2000 panelon 09-30-2023 Albumin BCP dye [Mass/Vol] 4.3 g/dL Normal 3.4-5.0 [facility] Comment on above: Performed By: #### 2 4323-8 #### SHARDA DUMONT ([id number]) [facility] ([facility]) [address] [place] [address] 85647 ALP [Catalytic activity/Vol] 72 U/L Normal 33-110 [facility] Comment on above: Performed By: #### 2 4323-8 #### SHARAD DUMONT ([id number]) [facility] ([facility]) [address] [place] [address] 87043 ALT With P-5'-P [Catalytic activity/Vol] 11 U/L Normal 7-45 [facility] Comment on above: Result Comment: Julieth ents treated with Sulfasalazine may generate falsely decreased results for ALT. Performed By: #### 2 4323-8 #### SHARDA DUMONT ([id number]) [facility] ([facility]) [address] [place] [address] 54902 Anion gap [Moles/Vol] 12 mmol/L Normal 10-20 [facility] Comment on above: Performed By: #### 2 4323-8 #### SHARDA DUMONT ([id number]) [facility] ([facility]) [address] [place] [address] AST With P-5'-P [Catalytic activity/Vol] 13 U/L Normal 9-39 [facility] Comment on above: Performed By: #### 2 432-8 #### SHARDA DUMONT ([id number]) [facility] ([facility]) [address] [place] [address] Bilirubin [Mass/Vol] 0.3 mg/dL Normal 0.0-1.2 [facility] Comment on above: Performed By: #### 2 4322-8 #### SHARDA DUMONT ([id number]) [facility] ([facility]) [address] [place] [address] 77014 Calcium [Mass/Vol] 9.9 mg/dL Normal 8.6-10.3 [facility] Comment on above: Performed By: #### 2 4322-8 #### SHARDA DUMONT ([id number]) [facility] ([facility]) [address] [place] [address] 99258 Chloride [Moles/Vol] 106 mmol/L Normal 98-107 [facility] Comment on above: Performed By: #### 2 432-8 #### SHARDA DUMONT ([id number]) [facility] ([facility]) [address] [place] [address] 68800 CO2 [Moles/Vol] 25 mmol/L Normal 21-32 [facility] Comment on above: Performed By: #### 2 4322-8 #### SHARDA DUMONT ([id number]) [facility] ([facility]) [address] [place] [address] 99394 Creatinine [Mass/Vol] 0.94 mg/dL Normal 0.50-1.05 [facility] Comment on above: Performed By: #### 2 4323-8 #### SHARDA DUMONT ([id number]) [facility] ([facility]) [address] [place] [address] 13669 Glomerular filtration rate/1.73 sq M.predicted 71 mL/min/1.73m*2 Normal >60 [facility] Comment on above: Result Comment: Calc ulations of estimated GFR are performed using the 2020 CKD-EPI Study Refit equation without the race variable for the IDMS-Traceable creatinine methods. https://jasn.asnjournals.org/content//ASN.369905411 8 Performed By: #### 2 4323-8 #### SHARDA DUMONT ([id number]) [facility] ([facility]) [address] [place] [address] 54628 Glucose [Mass/Vol] 137 mg/dL High 74-99 [facility] Comment on above: Performed By: #### 2 3-8 #### SHARDA DUMONT ([id number]) [facility] ([facility]) [address] [place] [address] 34813 Potassium [Moles/Vol] 4.1 mmol/L Normal 3.5-5.3 [facility] Comment on above: Performed By: #### 2 3-8 #### SHARDA DUMONT ([id number]) [facility] ([facility]) [address] [place] [address] 74088 Protein [Mass/Vol] 6.4 g/dL Normal 6.4-8.2 [facility] Comment on above: Performed By: #### 2 4323-8 #### SHARDA DUMONT ([id number]) [facility] ([facility]) [address] [place] [address] 09248 Sodium [Moles/Vol] 139 mmol/L Normal 136-145 [facility] Comment on above: Performed By: #### 2 3-8 #### SHARDA DUMONT ([id number]) [facility] ([facility]) [address] [place] [address] 24774 Urea nitrogen [Mass/Vol] 16 mg/dL Normal 6-23 [facility] Comment on above: Performed By: #### 2 4323-8 #### SHARDA DUMONT ([id number]) [facility] ([facility]) [address] [place] [address] 28333 HbA1c (Bld) [Mass fraction]o n 09-30-2023 Average glucose Estimated from glycated hemoglobin (Bld) [Mass/Vol] 114 mg/dL Normal Not Established [facility] Comment on above: Order Comment: Diagn osis of Diabetes-Adults Non-Diabetic: < or = 5.6% Increased risk for developing diabetes: 5.7-6.4% Diagnostic of diabetes: > or = 6.5% Performed By: #### 4 548-4 #### SHARDA DUMONT ([id number]) [facility] ([facility]) [address] [place] [address] 07382 Hemoglobin A1c/Hemoglobin.to kiya 09-30-2023 HbA1c (Bld) [Mass fraction] 5.6 % Normal see below [facility] Comment on above: Order Comment: Diagn osis of Diabetes-Adults Non-Diabetic: < or = 5.6% Increased risk for developing diabetes: 5.7-6.4% Diagnostic of diabetes: > or = 6.5% Performed By: #### 4 548-4 #### SHARDA DUMONT ([id number]) [facility] ([facility]) [address] [place] [address] 31394 Lipid 1996 panelon 4 Cholesterol [Mass/Vol] 283 mg/dL High 0-199 [facility] Comment on above: Result Comment: Age Desirable Borderline High High 0-19 Y 0 - 169 170 - 199 >/= 200 20-24 Y 0 - 189 190 - 224 >/= 225 >24 Y 0 - 199 200 - 239 >/= 240 All ranges are based on fasting samples. Specific therapeutic targets will vary based on patient-specific cardiac risk. Pediatric guidelines reference:Pediatrics 2011, 128(S5).Adult guidelines reference: NCEP ATPIII Guidelines,GITA 2001, 258:2486-97 Venipuncture immediately after or during the administration of Metamizole may lead to falsely low results. Testing should be performed immediately prior to Metamizole dosing. Performed By: #### 2 4331-1 #### SHARDA DUMONT (49752) [facility] ([facility]) [address] [place] [address] 76331 Cholesterol in HDL [Mass/Vol] 34.0 mg/dL Normal [facility] Comment on above: Result Comment: Age Very Low Low Normal High 0-19 Y < 35 < 40 40-45 ---- 20-24 Y ---- < 40 >45 ---- >24 Y ---- < 40 40-60 >60 Performed By: #### 2 4331-1 #### SHARDA DUMONT ([id number]) [facility] ([facility]) [address] [place] [address] 46060 Cholesterol in LDL [Mass/Vol] 195 mg/dL High <=99 [facility] Comment on above: Result Comment: Near Borderline AGE Desirable Optimal High High Very High 0-19 Y 0 - 109 --- 110-129 >/= 130 ---- 20-24 Y 0 - 119 --- 120-159 >/= 160 ---- >24 Y 0 - 99 100-129 130-159 160-189 >/=190 Performed By: #### 2 4331-1 #### SHARDA DUMONT ([id number]) [facility] ([facility]) [address] [place] [address] 15754 Cholesterol in VLDL [Mass/Vol] 54 mg/dL High 0-40 [facility] Comment on above: Performed By: #### 2 4331-1 #### SHARDA DUMONT ([id number]) [facility] ([facility]) [address] [place] [address] 61608 CHOLESTEROL/HDL RATIO 8.3 Normal [facility] Comment on above: Result Comment: Ref Values Desirable < 3.4 High Risk > 5.0 Performed By: #### 2 4331-1 #### SHARDA DUMONT ([id number]) [facility] ([facility]) [address] [place] [address] 47405 NON HDL CHOLESTEROL 249 mg/dL High 0-149 [facility] Comment on above: Result Comment: Age Desirable Borderline High High Very High 0-19 Y 0 - 119 120 - 144 >/= 145 >/= 160 20-24 Y 0 - 149 150 - 189 >/= 190 ---- >24 Y 30 mg/dL above LDL Cholesterol goal Performed By: #### 2 4331-1 #### SHARDA DUMONT ([id number]) [facility] ([facility]) [address] [place] [address] 90891 Triglyceride [Mass/Vol] 268 mg/dL High 0-149 [facility] Comment on above: Result Comment: Age Desirable Borderline High High Very High 0 D-90 D 19 - 174 ---- ---- ---- 91 D- 9 Y 0 - 74 75 - 99 >/= 100 ---- 10-19 Y 0 - 89 90 - 129 >/= 130 ---- 20-24 Y 0 - 114 115 - 149 >/= 150 ---- >24 Y 0 - 149 150 - 199 200- 499 >/= 500 Venipuncture immediately after or during the administration of Metamizole may lead to falsely low results. Testing should be performed immediately prior to Metamizole dosing. Performed By: #### 2 4331-1 #### SHARDA DUMONT ([id number]) [facility] ([facility]) [address] [place] [address] 31235 TSH WITH REFLEX TO FREE T4 I F ABNORMALon 09-30-2023 TSH Qn 1.94 m[IU]/L Normal 0.44-3.98 [facility] Comment on above: Order Comment: TSH t esting is performed using different testing methodology at [facility] than at other [facility]. Direct result comparisons should only be made within the same method. Performed By: #### T HYDS #### SHARDA DUMONT ([id number]) [facility] ([facility]) [address] [place], [place] [address] Urinalysis complete panel (U )on 09-30-2023 Appearance (U) Turbid Normal Clear [facility] Comment on above: Performed By: #### 2 4356-8 #### SHARDA DUMONT ([id number]) [facility] [facility]) [address] [place] [address] [id number] Bilirubin (U) [Mass/Vol] Negative Normal NEGATIVE [facility] Comment on above: Performed By: #### 2 4356-8 #### SHARDA DUMONT ([id number]) [facility] ([facility]) [address] [place] [address] 65780 Color (U) Yellow Normal Light-Yellow, Yellow, Dark-Yellow [facility] Comment on above: Performed By: #### 2 4356-8 #### SHARDA DUMONT ([id number]) [facility] ([facility]) [address] [place] [address] 97569 Glucose Auto test strip (U) [Mass/Vol] Normal Normal Normal [facility] Comment on above: Performed By: #### 2 4356-8 #### SHARDA DUMONT ([id number]) [facility] ([facility]) [address] [place] [address] 65435 Ketones (U) [Mass/Vol] Negative Normal NEGATIVE [facility] Comment on above: Performed By: #### 2 4356-8 #### SHARDA DUMONT ([id number]) [facility] ([facility]) [address] [place] [address] 87670 Leukocyte esterase Auto test strip Ql (U) 25 Sherie/???L Abnormal NEGATIVE [facility] Comment on above: Performed By: #### 2 4356-8 #### SHARDA DUMONT ([id number]) [facility] ([facility]) [address] [place], [place] [address] Nitrite Auto test strip Ql (U) Negative Normal NEGATIVE [facility] Comment on above: Performed By: #### 2 6-8 #### SHARDA DUMONT ([id number]) [facility] ([facility]) [address] [place] [address] 95760 pH (U) 6.0 [pH] Normal 5.0, 5.5, 6.0, 6.5, 7.0, 7.5, 8.0 [facility] Comment on above: Performed By: #### 2 4356-8 #### SHARDA DUMONT ([id number]) [facility] ([facility]) [address] [place] [address] 90843 Protein (U) [Mass/Vol] 10 (TRACE) Normal NEGATIVE, 10 (TRACE), 20 (TRACE) [facility] Comment on above: Performed By: #### 2 4356-8 #### SHARDA DUMONT ([id number]) [facility] ([facility]) [address] [place] [address] 68527 RBC (U) [#/Vol] Negative Normal NEGATIVE [facility] Comment on above: Performed By: #### 2 4356-8 #### SHARDA DUMONT ([id number]) [facility] ([facility]) [address] [place] [address] Specific gravity (U) [Rel density] 1.018 Normal 1.005-1.035 [facility] Comment on above: Performed By: #### 2 4356-8 #### SHARDA DUMONT ([id number]) [facility] ([facility]) [address] [place] [address] Urobilinogen (U) [Mass/Vol] Normal Normal Normal [facility] Comment on above: Performed By: #### 2 4356-8 #### SHARDA DUMONT ([id number]) [facility] ([facility]) [address] [place] [address] Urinalysis microscopic panel Auto Ql (U)on 09-30-2023 Epithelial cells.squamous Auto (Urine sed) [#/Area] 1-9 (SPARSE) Normal Reference range not established. [facility] Comment on above: Performed By: #### 5 3315-8 #### SHARDA DUMONT ([id number]) [facility] ([facility]) [address] [place] [address] Hyaline casts Auto (Urine sed) [#/Area] 1+ /LPF Abnormal NONE [facility] Comment on above: Performed By: #### 5 3315-8 #### SHARDA DUMONT ([id number]) [facility] ([facility]) [address] [place] [address] Mucus Auto (Urine sed) [#/Area] 1+ /LPF Normal Reference range not established. [facility] Comment on above: Performed By: #### 5 3315-8 #### SHARDA DUMONT ([id number]) [facility] ([facility]) [address] [place] [address] RBC Auto (Urine sed) [#/Area] >20 Abnormal NONE, 1-2, 3-5 [facility] Comment on above: Performed By: #### 5 3315-8 #### SHARDA DUMONT ([id number]) [facility] ([facility]) [address] [place] [address] [place] [address] WBC Auto (Urine sed) [#/Area] 1-5 Normal 1-5, NONE [facility] Comment on above: Performed By: #### 5 3315-8 #### ROBIN JULIA ([id number]) [facility] ([facility]) [address] [place] [address] Blood Pressure Cuff Sizeon 1 03-27-2021 Blood Pressure Cuff Size Adult [facility] Work Phone: HM 50+ Yearson 01-25-2022 HM 50+ Years Diagnoses/Problems Health Maintenance/Risks Encounter for preventive health examination (V70.0) (Z00.00) Assessed Diabetes mellitus (250.00) (E11.9) B12 deficiency (266.2) (E53.8) Hypercalcemia (275.42) (E83.52) Hyperlipidemia (272.4) (E78.5) Abnormal screening mammogram (793.80) (R92.8) Orders Abnormal screening mammogram Mamm - Screening Mammogram w/ Tomosynthesis; Status:Hold For - Scheduling; Requested for:[id number]; Perform: Radiology Services Imaging; Due:[id number];Ordered; For:Abnormal screening mammogram; Ordered By:Shun Rivers; Radiologist to Determine Optimal Study : Y What are the patient's signs and symptoms ? : Annual Screening Mammogram Patient Discussion/Summary #1. Health maintenance. Fasting bloodwork today we will call for results in one to 2 weeks. 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 Mammogram ordered today. Colonoscopy is up-to-date. #2. Diabetes type 2. Hemoglobin A1c of 5.9 is excellent Continue current meds excellent improvement. Diabetes can be progressive (requiring more medications with time). If we can't regulate your Hemoglobin A1C with current meds we will add more in the future and consider Insulin therapy. Persistently elevated blood sugars can damage small blood vessels and nerves in the brain, eyes, heart, kidneys and feet. You should be getting yearly dilated eye exams. You should be inspecting your feet daily for any injuries. Also do not walk bare foot indoors or outside. Weight loss (to a BMI 30) and regular exercise (30 minutes per day) can greatly improve your need for medications for your diabetes. A hemoglobin A1c (3 month blood sugar average) will be checked 1-4 times per year to help monitor you blood sugar control.We are aggressive at treating diabetes because it is a significant risk factor for heart disease and stroke. Please reduce the amount of carbohydrates you are eating, and instead try eating more lean protein such as fish, turkey, and chicken. Please try to follow an ADA ([place] [employer]) diet. Chief Complaint CPE History of Present [id number] female for wellness visit. Review of Systems Constitutional: NO F, chills, or sweats Eyes: no blurred vision or visual disturbance ENT: no hearing loss, no congestion, no nasal discharge, no hoarseness and no sore throat. Cardiovascular: no chest pain, no edema, no palps and no syncope. Respiratory: no cough,no s.o.b. and no wheezing Gastrointestinal: no abdominal pain, No C/D no N/V, no blood in stools Genitourinary denies any urinary symptoms Musculoskeletal: no arthralgias, no back pain and no myalgias. Integumentary: no new skin lesions and no rashes. Neurological: No numbness and tingling no weakness Endocrine chronic fatigue, not checking glucose readings at home Psych?mild anxiety, doing well without medication at this time Active Problems Problems Abnormal screening mammogram (793.80) (R92.8) Anxiety (300.00) (F41.9) Atypical chest pain (786.59) (R07.89) B12 deficiency (266.2) (E53.8) COVID-19 (079.89) (U07.1) Diabetes mellitus (250.00) (E11.9) Elevated WBCs (288.60) (D72.829) Hypercalcemia (275.42) (E83.52) Hyperlipidemia (272.4) (E78.5) Irritable bowel syndrome (564.1) (K58.9) Menopausal symptoms (627.2) (N95.1) Migraines (346.90) (G43.909) Nausea (787.02) (R11.0) Positive colorectal cancer screening using Cologuard test (787.7) (R19.5) Screening for AAA (abdominal aortic aneurysm) (V81.2) (Z13.6) Screening for colon cancer (V76.51) (Z12.11) Screening for thyroid disorder (V77.0) (Z13.29) Vitamin D insufficiency (268.9) (E55.9) Past Medical History Problems History of Costochondritis, acute (733.6) (M94.0) Resolved Date: 09 Sep 2018 History of acute bacterial sinusitis (V12.69) (Z87.09) Resolved Date: 24 Sep 2019 History of Yeast infection (112.9) (B37.9) Resolved Date: 02 Aug 2016 Family History Mother Family history of hyperlipidemia (V18.19) (Z83.438) Father Family history of cardiac disorder (V17.49) (Z82.49) Family history of hypertension (V17.49) (Z82.49) Social History Problems Current smoker (305.1) (F17.200) Daily caffeine consumption, 4-5 servings a day No alcohol use No drug use Allergies Medication codeine Recorded By: May Schmidt; 01/20/2015 12:53:55 PM Current Meds Medication NameInstruction Fenofibrate 160 MG Oral TabletTAKE 1 TABLET BY MOUTH EVERY DAY Hyoscyamine Sulfate 0.125 MG Sublingual Tablet SublingualPLACE 1 TABLET UNDER THE TONGUE EVERY 4 TO 6 HOURS NEEDED. Loperamide HCl - 2 MG Oral CapsuleGIVE 1 CAPSULE BY MOUTH TWICE DAILY NEEDED metFORMIN HCl - 500 MG Oral TabletTAKE 1 TABLET BY MOUTH EVERY DAY Ozempic (0.25 or 0.5 MG/DOSE) 2 MG/1.5ML Subcutaneous Solution Pen-injectorInject 0.5mg once weekly Promethazine HCl - 25 MG Oral TabletTAKE 1 TO 2 TABLETS BY MOUTH EVERY 6 HOURS NEEDED FOR NAUSEA OR VOMITING Rosuvastatin Calcium 40 MG Oral TabletTAKE 1 TABLET BY (more content not included)... Normal Touchworks CBC AND DIFFERENTIALon 12-25 % AUTOMATED IMMATURE GRAN 0.4 % Normal 0.0 - 0.9 [facility] [place] Comment on above: Result Comment: Samantha ture Granulocyte Count (IG) includes promyelocytes, myelocytes and metamyelocytes but does not include bands. Percent differential counts (%) should be interpreted in the context of the absolute cell counts (cells/L). Performed By: #### C BCDF #### [facility] [address] [place] [address] Basophils (Bld) [#/Vol] 0.05 10*3/uL Normal 0.00 - 0.10 [facility] [place] Comment on above: Performed By: #### C BCDF #### [facility] [address] [place] [address] Basophils/100 WBC (Bld) 0.4 % Normal 0.0 - 2.0 [facility] [place] Comment on above: Performed By: #### C BCDF #### [facility] [address] [place] [address] Eosinophils (Bld) [#/Vol] 0.80 10*3/uL High 0.00 - 0.70 [facility] [place] Comment on above: Performed By: #### C BCDF #### [facility] [address] [place] [address] Eosinophils/100 WBC (Bld) 7.2 % Normal 0.0 - 6.0 [facility] [place] Comment on above: Performed By: #### C BCDF #### [facility] [address] [place] [address] Erythrocyte distribution width (RBC) [Ratio] 12.4 % Normal 11.5 - 14.5 [facility] [place] Comment on above: Performed By: #### C BCDF #### [facility] [address] [place] [address] Hematocrit (Bld) [Volume fraction] 40.7 % Normal 36.0 - 46.0 [facility] [place] Comment on above: Performed By: #### C BCDF #### [facility] [address] [place] [address] Hemoglobin (Bld) [Mass/Vol] 13.8 g/dL Normal 12.0 - 16.0 [facility] [place] Comment on above: Performed By: #### C BCDF #### [facility] [address] [place] [address] Lymphocytes (Bld) [#/Vol] 3.10 10*3/uL Normal 1.20 - 4.80 [facility] [place] Comment on above: Performed By: #### C BCDF #### [facility] [address] [place] [address] Lymphocytes/100 WBC (Bld) 27.7 % Normal 13.0 - 44.0 [facility] [place] Comment on above: Performed By: #### C BCDF #### [facility] [address] [place] [address] MCHC (RBC) [Mass/Vol] 33.9 g/dL Normal 32.0 - 36.0 [facility] [place] Comment on above: Performed By: #### C BCDF #### [facility] [address] [place] [address] MCV (RBC) [Entitic vol] 99 fL Normal 80 - 100 [facility] [place] Comment on above: Performed By: #### C BCDF #### [facility] [address] [place] [address] Monocytes (Bld) [#/Vol] 0.63 10*3/uL Normal 0.10 - 1.00 [facility] [place] Comment on above: Performed By: #### C BCDF #### [facility] [address] [place] [address] Monocytes/100 WBC (Bld) 5.6 % Normal 2.0 - 10.0 [facility] [place] Comment on above: Performed By: #### C BCDF #### [facility] [address] [place] [address] Neutrophils (Bld) [#/Vol] 6.56 10*3/uL Normal 1.20 - 7.70 [facility] [place] Comment on above: Performed By: #### C BCDF #### [facility] [address] [place] [address] Neutrophils/100 WBC (Bld) 58.7 % Normal 40.0 - 80.0 [facility] [place] Comment on above: Performed By: #### C BCDF #### [facility] [address] [place] [address] NUCLEATED RBC 0.0 /100 WBC Normal 0.0-0.0 [facility] Comment on above: Performed By: #### C BCDF #### [facility] [address] [place] [address] Platelets (Bld) [#/Vol] 365 10*3/uL Normal 150 - 450 [facility] [place] Comment on above: Performed By: #### C BCDF #### [facility] [address] [place] [address] RBC 4.12 x10E12/L Normal 4.00 - 5.20 [facility] Comment on above: Performed By: #### C BCDF #### [facility] [address] [place] [address] WBC (Bld) [#/Vol] 11.2 10*3/uL Normal 4.4 - 11.3 [facility] [place] Comment on above: Performed By: #### C BCDF #### [facility] [address] [place] [address] COMPREHENSIVE PANELon 2021 Albumin [Mass/Vol] 4.4 g/dL Normal 3.4 - 5.0 [facility] Comment on above: Performed By: #### C MP #### [facility] [address] [place] [address] ALP [Catalytic activity/Vol] 52 U/L Normal 33 - 110 [facility] [place] Comment on above: Performed By: #### C MP #### [facility] [address] [place] [address] ALT [Catalytic activity/Vol] 12 U/L Normal 7 - 45 [facility] [place] Comment on above: Result Comment: Julieth ents treated with Sulfasalazine may generate falsely decreased results for ALT. Performed By: #### C MP #### [facility] [address] [place] [address] Anion gap [Moles/Vol] 13 mmol/L Normal 10 - 20 [facility] [place] Comment on above: Performed By: #### C MP #### [facility] [address] [place] [address] AST [Catalytic activity/Vol] 19 U/L Normal 9 - 39 [facility] [place] Comment on above: Performed By: #### C MP #### [facility] [address] [place] [address] Bilirubin [Mass/Vol] 0.3 mg/dL Normal 0.0 - 1.2 [facility] [place] Comment on above: Performed By: #### C MP #### [facility] [address] [place] [address] Calcium [Mass/Vol] 10.7 mg/dL High 8.6 - 10.6 [facility] Comment on above: Performed By: #### C MP #### [facility] [address] [place] [address] Chloride [Moles/Vol] 104 mmol/L Normal 98 - 107 [facility] [place] Comment on above: Performed By: #### C MP #### [facility] [address] [place] [address] Creatinine [Mass/Vol] 0.80 mg/dL Normal 0.50 - 1.05 [facility] [place] Comment on above: Performed By: #### C MP #### [facility] [address] [place] [address] GFR/1.73 sq M.predicted among non-blacks MDRD (S/P/Bld) [Vol rate/Area] 87 mL/min/{1.73_m2} Normal >90 [facility] [place] Comment on above: Result Comment: CALC ULATIONS OF ESTIMATED GFR ARE PERFORMED USING THE 2020 CKD-EPI STUDY REFIT EQUATION WITHOUT THE RACE VARIABLE FOR THE IDMS-TRACEABLE CREATININE METHODS. https://jasn.asnjournals.org/content//ASN.993933914 8 Performed By: #### C MP #### [facility] [address] [place] [address] Glucose [Mass/Vol] 124 mg/dL High 74 - 99 [facility] Comment on above: Performed By: #### C MP #### [facility] [address] [place] [address] HCO3 (Bld) [Moles/Vol] 29 mmol/L Normal 21 - 32 [facility] [place] Comment on above: Performed By: #### C MP #### [facility] [address] [place] [address] Potassium [Moles/Vol] 3.6 mmol/L Normal 3.5 - 5.3 [facility] [place] Comment on above: Performed By: #### C MP #### [facility] [address] [place] [address] Protein [Mass/Vol] 6.9 g/dL Normal 6.4 - 8.2 [facility] Comment on above: Performed By: #### C MP #### [facility] [address] [place] [address] Sodium [Moles/Vol] 142 mmol/L Normal 136 - 145 [facility] Comment on above: Performed By: #### C MP #### [facility] [address] [place] [address] Urea nitrogen [Mass/Vol] 15 mg/dL Normal 6 - 23 [facility] [place] Comment on above: Performed By: #### C MP #### [facility] [address] [place] [address] Complete Blood Count + Diffe barbtialon 12-25-2021 Basophils/100 WBC (Bld) 0.4 % 0.0 - 2.0 [facility] Work Phone: Erythrocyte distribution width (RBC) [Ratio] 12.4 % See Below [facility] 5825 Work Phone: Comment on above: Reference Range: 11. 5 - 14.5 Hematocrit (Bld) [Volume fraction] 40.7 % See Below [facility] 5839 Work Phone: Comment on above: Reference Range: 36. 0 - 46.0 Hemoglobin (Bld) [Mass/Vol] 13.8 g/dL See Below [facility] 5812 Work Phone: Comment on above: Reference Range: 12. 0 - 16.0 Lymphocytes/100 WBC (Bld) 27.7 % See Below [facility] a 5817 Work Phone: Comment on above: Reference Range: 13. 0 - 44.0 MCHC (RBC) [Mass/Vol] 33.9 g/dL See Below [facility] 5845 Work Phone: Comment on above: Reference Range: 32. 0 - 36.0 MCV (RBC) [Entitic vol] 99 fL 80 - 100 [facility] 5829 Work Phone: Monocytes/100 WBC (Bld) 5.6 % 2.0 - 10.0 [facility] 5890 Work Phone: Neutrophils/100 WBC (Bld) 58.7 % See Below [facility] 5866 Work Phone: Comment on above: Reference Range: 40. 0 - 80.0 Platelets (Bld) [#/Vol] 365 10*3/uL 150 - 450 [facility] 5800 Work Phone: RBC (Bld) [#/Vol] 4.12 {x10E12/L} See Below [facility] a 5803 Work Phone: Comment on above: Reference Range: 4.0 0 - 5.20 WBC (Bld) [#/Vol] 11.2 10*3/uL 4.4 - 11.3 [facility] a 5881 Work Phone: Complete Blood Count + Differential 0.05 {x10E9/L} See Below [facility] 5826 Work Phone: Comment on above: Reference Range: 0.0 0 - 0.10 Complete Blood Count + Differential 0.80 {x10E9/L} above high threshold See Below [facility] a 5825 Work Phone: Comment on above: Reference Range: 0.0 0 - 0.70 Complete Blood Count + Differential 0.63 {x10E9/L} See Below [facility] a 5821 Work Phone: Comment on above: Reference Range: 0.1 0 - 1.00 Complete Blood Count + Differential 3.10 {x10E9/L} See Below [facility] 5850 Work Phone: Comment on above: Reference Range: 1.2 0 - 4.80 Complete Blood Count + Differential 6.56 {x10E9/L} See Below [facility] 5850 Work Phone: Comment on above: Reference Range: 1.2 0 - 7.70 Complete Blood Count + Differential 7.2 % 0.0 - 6.0 [facility] 5806 Work Phone: Complete Blood Count + Differential 0.4 % 0.0 - 0.9 [facility] 5874 Work Phone: Comment on above: Immature Granulocyte Count (IG) includes promyelocytes, myelocytes and metamyelocytes but does not include bands. Percent differential counts (%) should be interpreted in the context of the absolute cell counts (cells/L). Complete Blood Count + Differential 0.0 {/100_WBC} 0.0-0.0 [facility] 5891 Work Phone: HEMOGLOBIN A1Con 12-25-2021 Glucose [Mass/Vol] 111 mg/dL Normal [facility] Comment on above: Performed By: #### H BA1E #### [facility] [address] [place] [address] HbA1c (Bld) [Mass fraction] 5.5 % Normal [facility] [place] Comment on above: Result Comment: Diag nosis of Diabetes-Adults Non-Diabetic: < or = 5.6% Increased risk for developing diabetes: 5.7-6.4% Diagnostic of diabetes: > or = 6.5% . Monitoring of Diabetes Age (y) Therapeutic Goal (%) Adults: >18 <7.0 Pediatrics: 13-18 <7.5 7-12 <8.0 0- 6 7.5-8.5 [place] [employer]. Diabetes Care 33(S1), Mar 2009. Performed By: #### H BA1E #### [facility] [address] [place] [address] Hemoglobin A1Con 12-25-2021 Glucose [Mass/Vol] 111 mg/dL [facility] 5724 Work Phone: HbA1c (Bld) [Mass fraction] 5.5 % [facility] a 5827 Work Phone: Comment on above: Diagnosis of Diabete s-Adults Non-Diabetic: < or = 5.6% Increased risk for developing diabetes: 5.7-6.4% Diagnostic of diabetes: > or = 6.5%. Monitoring of Diabetes Age (y) Therapeutic Goal (%) Adults: >18 <7.0 Pediatrics: 13-18 <7.5 7-12 <8.0 0- 6 7.5-8.5 [place] [employer]. Diabetes Care 33(S1), Mar 2009. LIPID PANEL (CORONARY RISK 2 )on 12-25-2021 Cholesterol [Mass/Vol] 100 mg/dL Normal 0 - 199 [facility] [place] Comment on above: Result Comment: . AGE DESIRABLE BORDERLINE HIGH HIGH 0-19 Y 0 - 169 170 - 199 >/= 200 20-24 Y 0 - 189 190 - 224 >/= 225 >24 Y 0 - 199 200 - 239 >/= 240 All ranges are based on fasting samples. Specific therapeutic targets will vary based on patient-specific cardiac risk. . Pediatric guidelines reference:Pediatrics 2011, 128(S5). Adult guidelines reference: NCEP ATPIII Guidelines, GITA 2001, 258:2486-97 . Venipuncture immediately after or during the administration of Metamizole may lead to falsely low results. Testing should be performed immediately prior to Metamizole dosing. Performed By: #### L IPID #### [facility] [address] [place] [address] Cholesterol in HDL [Mass/Vol] 36.7 mg/dL Abnormal [facility] [place] Comment on above: Result Comment: . AGE VERY LOW LOW NORMAL HIGH 0-19 Y < 35 < 40 40-45 ---- 20-24 Y ---- < 40 >45 ---- >24 Y ---- < 40 40-60 >60 . Performed By: #### L IPID #### [facility] [address] [place] [address] Cholesterol in LDL [Mass/Vol] 32 mg/dL Normal 0 - 99 [facility] [place] Comment on above: Result Comment: . NEAR BORD AGE DESIRABLE OPTIMAL HIGH HIGH VERY HIGH 0-19 Y 0 - 109 --- 110-129 >/= 130 ---- 20-24 Y 0 - 119 --- 120-159 >/= 160 ---- >24 Y 0 - 99 100-129 130-159 160-189 >/=190 . Performed By: #### L IPID #### [facility] [address] [place] [address] Cholesterol in VLDL [Mass/Vol] 31 mg/dL Normal 0 - 40 [facility] [place] Comment on above: Performed By: #### L IPID #### [facility] [address] [place] [address] Cholesterol.total/ Cholesterol in HDL [Mass ratio] 2.7 {ratio} Normal [facility] [place] Comment on above: Result Comment: REF VALUES DESIRABLE < 3.4 HIGH RISK > 5.0 Performed By: #### L IPID #### [facility] [address] [place] [address] Triglyceride [Mass/Vol] 155 mg/dL High 0 - 149 [facility] [place] Comment on above: Result Comment: . AGE DESIRABLE BORDERLINE HIGH HIGH VERY HIGH 0 D-90 D 19 - 174 ---- ---- ---- 91 D- 9 Y 0 - 74 75 - 99 >/= 100 ---- 10-19 Y 0 - 89 90 - 129 >/= 130 ---- 20-24 Y 0 - 114 115 - 149 >/= 150 ---- >24 Y 0 - 149 150 - 199 200- 499 >/= 500 . Venipuncture immediately after or during the administration of Metamizole may lead to falsely low results. Testing should be performed immediately prior to Metamizole dosing. Performed By: #### L IPID #### [facility] [address] [place] [address] Laboratory - Chemistry and C hemistry - challengeon 12-25-2021 Albumin BCP dye [Mass/Vol] 4.4 g/dL 3.4 - 5.0 [facility] a 5832 Work Phone: ALP [Catalytic activity/Vol] 52 U/L 33 - 110 [facility] a 5888 Work Phone: ALT With P-5'-P [Catalytic activity/Vol] 12 U/L 7 - 45 [facility] a 5823 Work Phone: Comment on above: Patients treated wit h Sulfasalazine may generate falsely decreased results for ALT. Anion gap [Moles/Vol] 13 mmol/L 10 - 20 [facility] Work Phone: AST With P-5'-P [Catalytic activity/Vol] 19 U/L 9 - 39 [facility] a 5848 Work Phone: Bilirubin [Mass/Vol] 0.3 mg/dL 0.0 - 1.2 [facility] a 5841 Work Phone: Calcium [Mass/Vol] 10.7 mg/dL above high threshold 8.6 - 10.6 [facility] a 5872 Work Phone: Chloride [Moles/Vol] 104 mmol/L 98 - 107 [facility] a 5888 Work Phone: CO2 [Moles/Vol] 29 mmol/L 21 - 32 [facility] a 5845 Work Phone: Creatinine [Mass/Vol] 0.80 mg/dL See Below [facility] a 5844 Work Phone: Comment on above: Reference Range: 0.5 0 - 1.05 Glucose [Mass/Vol] 124 mg/dL above high threshold 74 - 99 -[facility] a 5835 Work Phone: Potassium [Moles/Vol] 3.6 mmol/L 3.5 - 5.3 [facility] a 5859 Work Phone: Protein [Mass/Vol] 6.9 g/dL 6.4 - 8.2 [facility] a 5821 Work Phone: Sodium [Moles/Vol] 142 mmol/L 136 - 145 -Ind [facility] a 5800 Work Phone: TSH Qn 0.88 m[IU]/L See Below [facility] a 5848 Work Phone: Comment on above: Reference Range: 0.4 4 - 3.98 TSH testing is performed using different testing methodology at [facility] than at other [facility]. Direct result comparisons should only be made within the same method. Urea nitrogen [Mass/Vol] 15 mg/dL 6 - 23 [facility] a 5864 Work Phone: Lipid Panelon 12-25-2021 Cholesterol [Mass/Vol] 100 mg/dL 0 - 199 [facility] 5839 Work Phone: Comment on above: . AGE DESIRABLE BORD RUBY HIGH HIGH 0-19 Y 0 - 169 170 - 199 >/= 200 20-24 Y 0 - 189 190 - 224 >/= 225 >24 Y 0 - 199 200 - 239 >/= 240 All ranges are based on fasting samples. Specific therapeutic targets will vary based on patient-specific cardiac risk.. Pediatric guidelines reference:Pediatrics 2011, 128(S5). Adult guidelines reference: NCEP ATPIII Guidelines, GITA 2001, 258:2486-97. Venipuncture immediately after or during the administration of Metamizole may lead to falsely low results. Testing should be performed immediately prior to Metamizole dosing. Cholesterol in HDL [Mass/Vol] 36.7 mg/dL Abnormal [facility] 5861 Work Phone: Comment on above: . AGE VERY LOW LOW N ORMAL HIGH 0-19 Y < 35 < 40 40-45 ---- 20- 24 Y ---- < 40 >45 ---- >24 Y ---- < 40 40-60 >60. Cholesterol in LDL [Mass/Vol] 32 mg/dL 0 - 99 [facility] 5828 Work Phone: Comment on above: . NEAR BORD AGE CESAR RABLE OPTIMAL HIGH HIGH VERY HIGH 0-19 Y 0 - 109 --- 110-129 >/= 130 ---- 20-24 Y 0 - 119 --- 120-159 >/= 160 ---- >24 Y 0 - 99 100-129 130-159 160-189 >/=190. Cholesterol.total/ Cholesterol in HDL [Mass ratio] 2.7 {ratio} [facility] 5819 Work Phone: Comment on above: REF VALUESDESIRABLE < 3.4HIGH RISK > 5.0 Triglyceride [Mass/Vol] 155 mg/dL above high threshold 0 - 149 [facility] 5818 Work Phone: Comment on above: . AGE DESIRABLE BORD RUBY HIGH HIGH VERY HIGH 0 D-90 D 19 - 174 ---- ---- ----91 D- 9 Y 0 - 74 75 - 99 >/= 100 ---- 10-19 Y 0 - 89 90 - 129 >/= 130 ---- 20-24 Y 0 - 114 115 - 149 >/= 150 ---- >24 Y 0 - 149 150 - 199 200- 499 >/= 500. Venipuncture immediately after or during the administration of Metamizole may lead to falsely low results. Testing should be performed immediately prior to Metamizole dosing. Lipid Panel 31 mg/dL 0 - 40 [facility] a 5825 Work Phone: No Panel Informationon 12-25 87 {mL/min/1.73m2} >90 MP-[facility] ep[facility] gar 5850 Work Phone: Comment on above: CALCULATIONS OF ENIO MATED GFR ARE PERFORMED USING THE 2020 CKD-EPI STUDY REFIT EQUATION WITHOUT THE RACE VARIABLE FOR THE IDMS-TRACEABLE CREATININE METHODS.https://jasn.asnjournals.org/content//ASN.2 816443817 TSH WITH REFLEX TO FREE T4 I F ABNORMALon 12-25-2021 TSH Qn 0.88 m[IU]/L Normal 0.44 - 3.98 [facility] Comment on above: Result Comment: TSH testing is performed using different testing methodology at [facility] than at other [facility]. Direct result comparisons should only be made within the same method. Performed By: #### T HYDS #### [facility] [address] [place] [address] UA MICROSCOPICon 12-25-2021 BACTERIA 1+ /HPF Abnormal [facility] [place] Comment on above: Performed By: #### U AMIC #### [facility] [address] [place] [address] CA OXALATE CRYSTAL 2+ /HPF Abnormal [facility] Comment on above: Performed By: #### U AMIC #### [facility] [address] [place] [address] Mucus Ql (Urine sed) 1+ /LPF Normal [facility] [place] Comment on above: Performed By: #### U AMIC #### [facility] [address] [place] [address] RBC (U) [#/Vol] /uL Normal 0-5 [facility] Comment on above: Performed By: #### U AMIC #### [facility] [address] [place] [address] SQUAMOUS EPITH. CELLS 3 /HPF Normal [facility] [place] Comment on above: Performed By: #### U AMIC #### [facility] [address] [place] [address] TRANSITIONAL EPITH.CELLS <1 Normal [facility] [place] Comment on above: Performed By: #### U AMIC #### [facility] [address] [place] [address] WBC 1 /HPF Normal 0-5 [facility] [place] Comment on above: Performed By: #### U AMIC #### [facility] [address] [place] [address] URINALYSISon 12-25-2021 Appearance (U) CLEAR Normal CLEAR [facility] Comment on above: Performed By: #### U A #### [facility] [address] [place] [address] Bilirubin Ql (U) Negative Normal NEGATIVE [facility] Comment on above: Performed By: #### U A #### [facility] [address] [place] [address] Color (U) YELLOW Normal STRAW,YELLOW [facility] [place] Comment on above: Performed By: #### U A #### [facility] [address] [place] [address] Glucose Ql (U) Negative Normal NEGATIVE [facility] Comment on above: Performed By: #### U A #### [facility] [address] [place] [address] Hemoglobin Ql (U) Negative Normal NEGATIVE [facility] Comment on above: Performed By: #### U A #### [facility] [address] [place] [address] Ketones Ql (U) Negative Normal NEGATIVE [facility] Comment on above: Performed By: #### U A #### [facility] [address] [place] [address] Leukocyte esterase Test strip Ql (U) TRACE Abnormal NEGATIVE [facility] [place] Comment on above: Performed By: #### U A #### [facility] [address] [place] [address] Nitrite Ql (U) Negative Normal NEGATIVE [facility] Comment on above: Performed By: #### U A #### [facility] [address] [place] [address] pH (U) 7.0 [pH] Normal 5.0 - 8.0 [facility] [place] Comment on above: Performed By: #### U A #### [facility] [address] [place] [address] Protein Ql (U) Negative Normal NEGATIVE [facility] Comment on above: Performed By: #### U A #### [facility] [address] [place] [address] Specific gravity (U) [Rel density] 1.008 Normal 1.005 - 1.035 [facility] [place] Comment on above: Performed By: #### U A #### [facility] [address] [place] [address] Urobilinogen (U) [Mass/Vol] mg/dL Normal 0.0 - 1.9 [facility] [place] Comment on above: Performed By: #### U A #### [facility] [address] [place] [address] Urinalysison 12-25-2021 Color (U) YELLOW See Below [facility] a 5850 Work Phone: Comment on above: Reference Range: STR AW,YELLOW Glucose Ql (U) Negative NEGATIVE [facility] a 5850 Work Phone: Ketones Ql (U) Negative NEGATIVE [facility] a 5850 Work Phone: Leukocyte esterase Test strip Ql (U) TRACE Abnormal NEGATIVE [facility] a 5850 Work Phone: pH (U) 7.0 [pH] 5.0 - 8.0 [facility] a 5850 Work Phone: Protein (U) [Mass/Vol] Negative NEGATIVE [facility] a 5850 Work Phone: RBC (U) [#/Vol] Negative NEGATIVE [facility] a 5850 Work Phone: Specific gravity (U) [Rel density] 1.008 1 See Below [facility] a 5850 Work Phone: Comment on above: Reference Range: 1.0 05 - 1.035 Urinalysis Negative NEGATIVE [facility] a 5862 Work Phone: [phone] Urinalysis <2.0 0.0 - 1.9 [facility] a 5850 Work Phone: [phone] Urinalysis CLEAR CLEAR [facility] a 5850 Work Phone: [phone] Urinalysis, Microscopicon Urinalysis, Microscopic 2+ Abnormal [facility] a 5850 Work Phone: [phone] Urinalysis, Microscopic 1+ Abnormal [facility] a 5886 Work Phone: Urinalysis, Microscopic <1 0-5 [facility] a 5850 Work Phone: [phone] Urinalysis, Microscopic 3 {/HPF} [facility] a 5850 Work Phone: [phone] Urinalysis, Microscopic 1 {/HPF} 0-[facility] a 5872 Work Phone: [phone] VITAMIN B12on 12-25-2021 Cobalamin (Vitamin B12) [Mass/Vol] 410 pg/mL Normal 211 - 911 [facility] [place] Comment on above: Performed By: #### V TB12 #### [facility] [address] [place] [address] VITAMIN D, 25-HYDROXYon 12-16 0-2021 VITAMIN D, 25-HYDROXY 71 ng/mL Normal [facility] [place] Comment on above: Result Comment: . DEFICIENCY: < 20 NG/ML INSUFFICIENCY: 20-29 NG/ML SUFFICIENCY: 30-100 NG/ML THIS ASSAY ACCURATELY QUANTIFIES THE SUM OF VITAMIN D3, 25-HYDROXY AND VIT D2,25-HYDROXY. Performed By: #### V TDOH #### [facility] [address] [place] [address] Vitamin B12, Serumon 022 Cobalamin (Vitamin B12) [Mass/Vol] 410 pg/mL 211 - 911 [facility] a 5815 Work Phone: Vitamin D 25-Hydroxyon 12-25 25-hydroxyvitamin D3 [Mass/Vol] 71 ng/mL [facility] a 5850 Work Phone: Comment on above: .DEFICIENCY: < 20 NG /MLINSUFFICIENCY: 20-29 NG/MLSUFFICIENCY: 30-100 NG/MLTHIS ASSAY ACCURATELY QUANTIFIES THE SUM OFVITAMIN D3, 25-HYDROXY AND VIT D2,25-HYDROXY. Ultrasound AAA Screeningon 0 05-11-2020 Ultrasound AAA Screening Interpreted by: ELSIE 10:23MRN: [id number] Name: ARIELA CRENSHAW STUDY:US AAA SCREENING; 05/11/2020 9:54 am INDICATION:mother and GM had AAA's. COMPARISON:None. ORDERING CLINICIAN:SHUN RIVERS TECHNIQUE:Transabdomina l imaging of the abdominal aorta was performed.Grayscale, color, and spectral Doppler were performed. FINDINGS:The abdominal aorta measures 2.5 cm in its maximal AP diameter and2.3 cm in its maximal transverse diameter. Note is made of mildatherosclerotic calcifications in the wall of the aorta. There is nothrombotic layering. The visualized portions of the right common iliac artery measures0.9 x 1.0 cm. The visualized portions of the left common iliac artery measures 1.0x 1.0 cm IMPRESSION:No evidence for abdominal aortic aneurysm. I personally reviewed the images/study and I agree with the residentfindings as stated. This study was interpreted at [place], [place].Electronically signed by: ELSIE 05/11/20 10:23 Normal [facility] melindasoledad [facility] Work Phone: Comment on above: ORDER REVISED TO A S AAA SCREENING BY RADIOLOGIST; Original Order Number: [id number] Metabolic Panelon 04-14-2020 HbA1c (Bld) [Mass fraction] 5.5 % 3.2-6.2 [facility] [place] Work Phone: Complete Blood Count + Cassie huffman 09-24-2019 Basophils (Bld) [#/Vol] 0.06 {x10E9/L} See Below [facility] [place] Work Phone: Comment on above: Reference Range: 0.0 0 - 0.10 Basophils/100 WBC (Bld) 0.5 % 0.0 - 2.0 [facility] [place] Work Phone: Eosinophils (Bld) [#/Vol] 0.62 {x10E9/L} See Below -[facility] [place] Work Phone: Comment on above: Reference Range: 0.0 0 - 0.70 Eosinophils/100 WBC (Bld) 5.1 % 0.0 - 6.0 [facility] Work Phone: Erythrocyte distribution width (RBC) [Ratio] 12.4 % See Below -[facility] Work Phone: Comment on above: Reference Range: 11. 5 - 14.5 Hematocrit (Bld) [Volume fraction] 46.0 % See Below -[facility] [place] Work Phone: Comment on above: Reference Range: 36. 0 - 46.0 Hemoglobin (Bld) [Mass/Vol] 15.5 g/dL See Below -[facility] Work Phone: Comment on above: Reference Range: 12. 0 - 16.0 Lymphocytes (Bld) [#/Vol] 3.44 {x10E9/L} See Below -[facility] Work Phone: Comment on above: Reference Range: 1.2 0 - 4.80 Lymphocytes/100 WBC (Bld) 28.5 % See Below [facility] Work Phone: Comment on above: Reference Range: 13. 0 - 44.0 MCHC (RBC) [Mass/Vol] 33.7 g/dL See Below [facility] Work Phone: Comment on above: Reference Range: 32. 0 - 36.0 MCV (RBC) [Entitic vol] 98 fL 80 - 100 -[facility] Work Phone: Monocytes (Bld) [#/Vol] 0.64 {x10E9/L} See Below -[facility] Work Phone: Comment on above: Reference Range: 0.1 0 - 1.00 Monocytes/100 WBC (Bld) 5.3 % 2.0 - 10.0 [facility] Work Phone: Neutrophils (Bld) [#/Vol] 7.25 {x10E9/L} See Below -[facility] Work Phone: Comment on above: Reference Range: 1.2 0 - 7.70 Neutrophils/100 WBC (Bld) 60.2 % See Below [facility] Work Phone: Comment on above: Reference Range: 40. 0 - 80.0 Platelets (Bld) [#/Vol] 329 {x10E9/L} 150 - 450 -[facility] Work Phone: RBC (Bld) [#/Vol] 4.71 {x10E12/L} See Below -[facility] Work Phone: Comment on above: Reference Range: 4.0 0 - 5.20 WBC (Bld) [#/Vol] 0.0 {/100_WBC} 0.0-0.0 [facility] Work Phone: WBC (Bld) [#/Vol] 12.1 {x10E9/L} above high threshold 4.4 - 11.3 [facility] Work Phone: Complete Blood Count + Differential 0.4 % 0.0 - 0.9 [facility] Work Phone: Comment on above: Immature Granulocyte Count (IG) includes promyelocytes, myelocytes and metamyelocytes but does not include bands. Percent differential counts (%) should be interpreted in the context of the absolute cell counts (cells/L). Hemoglobin A1Con 09-24-2019 HbA1c (Bld) [Mass fraction] 9.4 % [facility] Work Phone: Comment on above: Diagnosis of Diabete s-Adults Non-Diabetic: < or = 5.6% Increased risk for developing diabetes: 5.7-6.4% Diagnostic of diabetes: > or = 6.5%. Monitoring of Diabetes Age (y) Therapeutic Goal (%) Adults: >18 <7.0 Pediatrics: 13-18 <7.5 7-12 <8.0 0- 6 7.5-8.5 [place] [employer]. Diabetes Care 33(S1), Mar 2009. HbA1c (Bld) [Mass fraction] 223 {MG/DL} [facility] Work Phone: IO Hgb A1Con 09-24-2019 HbA1c (Bld) [Mass fraction] 9.9 % Abnormal 4.4-6.4% [facility] Work Phone: IO Microalbumin, Urine Quant itativeon 09-24-2019 Albumin Ql (U) 10 mg/L [facility] Work Phone: Albumin/Creatinine DL <= 20 mg/L (U) [Mass ratio] <30mg/g Normal [facility] Work Phone: Creatinine (U) [Mass/Vol] 50 mg/dL [facility] Work Phone: IO UA (automated w/o microsc opy)on 09-24-2019 Protein (U) [Mass/Vol] Negative [facility] Work Phone: IO UA (automated w/o microscopy) Negative [facility] Work Phone: IO UA (automated w/o microscopy) 1.015 [facility] Work Phone: IO UA (automated w/o microscopy) 6.0 [facility] Work Phone: IO UA (automated w/o microscopy) Normal (0.2-1.0 mg/dl) [facility] Work Phone: IO UA (automated w/o microscopy) Yellow [facility] Work Phone: IO UA (automated w/o microscopy) Clear [facility] Work Phone: IO UA (automated w/o microscopy) 1000 mg/dl [facility] Work Phone: Lipid Panelon 09-24-2019 Cholesterol [Mass/Vol] 185 mg/dL 0 - 199 [facility] Work Phone: Comment on above: . AGE DESIRABLE BORD RUBY HIGH HIGH 0-19 Y 0 - 169 170 - 199 >/= 200 20-24 Y 0 - 189 190 - 224 >/= 225 >24 Y 0 - 199 200 - 239 >/= 240 All ranges are based on fasting samples. Specific therapeutic targets will vary based on patient-specific cardiac risk.. Pediatric guidelines reference:Pediatrics 2011, 128(S5). Adult guidelines reference: NCEP ATPIII Guidelines, GITA 2001, 258:2486-97. Venipuncture immediately after or during the administration of Metamizole may lead to falsely low results. Testing should be performed immediately prior to Metamizole dosing. Cholesterol in HDL [Mass/Vol] 37.6 mg/dL Abnormal [facility] [place] Work Phone: Comment on above: . AGE VERY LOW LOW N ORMAL HIGH 0-19 Y < 35 < 40 40-45 ---- 20- 24 Y ---- < 40 >45 ---- >24 Y ---- < 40 40-60 >60. Cholesterol in LDL [Mass/Vol] 81 mg/dL 0 - 99 [facility] [place] Work Phone: Comment on above: . NEAR BORD AGE CESAR RABLE OPTIMAL HIGH HIGH VERY HIGH 0-19 Y 0 - 109 --- 110-129 >/= 130 ---- 20-24 Y 0 - 119 --- 120-159 >/= 160 ---- >24 Y 0 - 99 100-129 130-159 160-189 >/=190. Cholesterol non HDL [Mass/Vol] 147 mg/dL [facility] [place] Work Phone: Comment on above: AGE DESIRABLE BORDER LINE HIGH HIGH VERY HIGH 0-19 Y 0 - 119 120 - 144 >/= 145 >/= 160 20-24 Y 0 - 149 150 - 189 >/= 190 ---- >24 Y 30 MG/DL ABOVE LDL CHOLESTEROL GOAL. Cholesterol.total/ Cholesterol in HDL [Mass ratio] 4.9 {ratio} [facility] [place] Work Phone: Comment on above: REF VALUESDESIRABLE < 3.4HIGH RISK > 5.0 Triglyceride [Mass/Vol] 334 mg/dL above high threshold 0 - 149 [facility] Work Phone: Comment on above: . AGE DESIRABLE BORD RUBY HIGH HIGH VERY HIGH 0 D-90 D 19 - 174 ---- ---- ----91 D- 9 Y 0 - 74 75 - 99 >/= 100 ---- 10-19 Y 0 - 89 90 - 129 >/= 130 ---- 20-24 Y 0 - 114 115 - 149 >/= 150 ---- >24 Y 0 - 149 150 - 199 200- 499 >/= 500. Venipuncture immediately after or during the administration of Metamizole may lead to falsely low results. Testing should be performed immediately prior to Metamizole dosing. Lipid Panel 67 mg/dL above high threshold 0 - 40 [facility] [place] Work Phone: Metabolic Panelon 09-24-2019 ALP [Catalytic activity/Vol] 56 U/L 33 - 110 [facility] [place] Work Phone: Anion gap [Moles/Vol] 16 mmol/L 10 - 20 [facility] Work Phone: Bilirubin [Mass/Vol] 0.4 mg/dL 0.0 - 1.2 [facility] Work Phone: Calcium [Mass/Vol] 10.9 mg/dL above high threshold 8.6 - 10.6 [facility] [place] Work Phone: Chloride [Moles/Vol] 103 mmol/L 98 - 107 [facility] Work Phone: CO2 [Moles/Vol] 25 mmol/L 21 - 32 MP-Indepe nden [facility] [place] Work Phone: Creatinine [Mass/Vol] 0.64 mg/dL See Below -[facility] Work Phone: Comment on above: Reference Range: 0.5 0 - 1.05 Glucose [Mass/Vol] 210 mg/dL above high threshold 74 - 99 -[facility]epend[facility] Work Phone: Potassium [Moles/Vol] 4.3 mmol/L 3.5 - 5.3 -[facility] Work Phone: Protein [Mass/Vol] 7.1 g/dL 6.4 - 8.2 MP-Ind ependen [facility] Work Phone: Sodium [Moles/Vol] 140 mmol/L 136 - 145 [facility] Work Phone: Urea nitrogen [Mass/Vol] 14 mg/dL 6 - 23 [facility] Work Phone: Otheron 09-24-2019 Albumin BCP dye [Mass/Vol] 4.9 g/dL 3.4 - 5.0 -[facility] Work Phone: Albumin Ql (U) Canceled -Indepen [facility] Work Phone: Comment on above: TEST ALBUMIN, URINE SPOT WAS CANCELLED, 09/24/2019 09:30 done in doctors office. ALT With P-5'-P [Catalytic activity/Vol] 19 U/L 7 - 45 [facility] Work Phone: Comment on above: Patients treated wit h Sulfasalazine may generate falsely decreased results for ALT. AST With P-5'-P [Catalytic activity/Vol] 20 U/L 9 - 39 [facility] Work Phone: >60 >60 [facility] [address] [employer] Work Phone: Comment on above: CALCULATIONS OF ENIO MATED GFR ARE PERFORMED USING THE MDRD STUDY EQUATION FOR THE IDMS-TRACEABLE CREATININE METHODS. CLIN CHEM 2007;53:766-72 Thyroidon 09-24-2019 TSH Qn 1.24 {mIU/L} See Below -Independe n [facility] [address] [employer] Work Phone: Comment on above: Reference Range: 0.4 4 - 3.98 TSH testing is performed using different testing methodology at [facility] than at other [facility]. Direct result comparisons should only be made within the same method. Urinalysison 09-24-2019 Appearance (U) Canceled -[facility] [address] [employer] Work Phone: Comment on above: TEST URINALYSIS WAS CANCELLED, 09/24/2019 09:30 done in doctors office. Color (U) Canceled -[facility] [employer] Work Phone: Comment on above: TEST URINALYSIS WAS CANCELLED, 09/24/2019 09:30 done in doctors office. Glucose Ql (U) Canceled -[facility] [employer] Work Phone: Comment on above: TEST URINALYSIS WAS CANCELLED, 09/24/2019 09:30 done in doctors office. Ketones Ql (U) [facility]eled [facility] [employer] Work Phone: Comment on above: TEST URINALYSIS WAS CANCELLED, 09/24/2019 09:30 done in doctors office. Leukocyte esterase Test strip Ql (U) Canceled -[facility] [employer] Work Phone: Comment on above: TEST URINALYSIS WAS CANCELLED, 09/24/2019 09:30 done in doctors office. pH (U) Canceled -[facility] Work Phone: Comment on above: TEST URINALYSIS WAS CANCELLED, 09/24/2019 09:30 done in doctors office. Protein (U) [Mass/Vol] Canceled [facility] Work Phone: Comment on above: TEST URINALYSIS WAS CANCELLED, 09/24/2019 09:30 done in doctors office. RBC (U) [#/Vol] Canceled -[facility] Work Phone: Comment on above: TEST URINALYSIS WAS CANCELLED, 09/24/2019 09:30 done in doctors office. Specific gravity (U) [Rel density] Canceled [facility] Work Phone: Comment on above: TEST URINALYSIS WAS CANCELLED, 09/24/2019 09:30 done in doctors office. Urinalysis Canceled [facility] Work Phone: Comment on above: TEST URINALYSIS WAS CANCELLED, 09/24/2019 09:30 done in doctors office. Concentrations > = 2 0 mg/dL of ascorbic acid can be expected to cause strong interference in the reactions testing for glucose, nitrite and blood. It is recommended to discontinue Vitamin C administration and retest in 10 hours. Albumin/Creatinine DL <= 20 mg/L (U) [Mass ratio] Canceled [facility] Work Phone: Comment on above: TEST ALBUMIN, URINE SPOT WAS CANCELLED, 09/24/2019 09:30 done in doctors office. Creatinine (U) [Mass/Vol] Canceled [facility] Work Phone: Comment on above: TEST ALBUMIN, URINE SPOT WAS CANCELLED, 09/24/2019 09:30 done in doctors office. Vitamin B12, Serumon 020 Cobalamin (Vitamin B12) [Mass/Vol] 655 pg/mL 211 - 911 [facility] Work Phone: Vitamin D 25-Hydroxyon 09-23 Calcidiol [Mass/Vol] 59 ng/mL [facility] Work Phone: Comment on above: .DEFICIENCY: < 20 NG /MLINSUFFICIENCY: 20-29 NG/MLSUFFICIENCY: 30-100 NG/MLTHIS ASSAY ACCURATELY QUANTIFIES THE SUM OFVITAMIN D3, 25-HYDROXY AND VIT D2,25-HYDROXY. Vag Pathogens DNAon 09-16-19 20 Chandni sp DNA Probe Negative Normal Negative for Chandni species by DNA Probe [facility] Comment on above: Performed By: #### V AGDNA #### [facility] [employer] [address] [place] [address] [place] vag DNA Probe Negative Normal Negative for Gardnerella vaginalis by DNA Probe [facility] Comment on above: Performed By: #### V AGDNA #### [facility] [employer] [facility] [place] [address] Trich vag DNA Probe Negative Normal Negative for Trichomonas vaginalis by DNA Probe [facility] Comment on above: Performed By: #### V AGDNA #### [facility] [employer] [facility] [place] [address] CNOVon 09-15-2019 CNOV Office Visit (OBGYBD ) ARIELA CRENSHAW ([id number]) 1965 F Date Time Provider Department 09/15/19 2:15 PM JAZMINE SANDERSON OBGYBD During your visit today, we recorded the following information about you: Blood pressure Weight Height 120/80 78.9 kg 1.778 m Bailee Deshpande Ma 09/15/2019 5:46 PM Signed Fitting Room Inspector offered: Patient declines.SS Jazmine Sanderson MD 09/15/2019 5:46 PM Signed 53 year old presents today with a c/o VAGINAL ITCHING Yes VAGINAL DISCHARGE Yes Discharge: malodorous DATE OF ONSET off and on for several months. She has previously been seen in [facility] tried and Date of use: nothing recently Past Hx of infection and Tx: nil Exam: Ext genitalia erythematous with excoriation consistent with scratching. There are 3 small nodules on her left labia Vault clean Cervix normal Vaginal culture obtained A/P Vaginitis Patient advised I will send AFFIRM and HSV Will give Nystatin and triamcinolone for now. Jazmine Sanderson MD Referring Provider: SELF [200] Allergies As of Date: 09/15/2019 Noted Allergy Reaction CODEINE 03/20/2004 Comments: Hives Date Reviewed: 09/15/2019 Reviewed by: Bailee Deshpande Ma - Fully Assessed Reason for Visit: Vaginal Problem [117] Cmt: itching only in the external area, lesion that is itching has been there 6m or so Reason For Visit History Recorded Primary Visit Diagnosis:Vaginal itching [N89.8] Order(s):VAGINAL PATHOGENS DNA PROBES [SQVAGDNA] Order #: [id number] HSV CULTURE, BAL AND TISSUE [SQHSVCUL] Order #: [id number] FUTURE nystatin-triamcinolone (MYCOLOG) ointmentApply 1 application to affected area twice daily for 14 days.Disp: 15 gRfl: 1 Prescriptions as of 09/15/2019 Sig: FENOFIBRATE 160 MG TABLET Take by mouth q 24 HR. METFORMIN 500 MG TABLET Take by mouth q 12 HR. CRESTOR ORAL Take by mouth once daily. INVOKANA 300 MG TABLET Take 300 mg by mouth once rosa isela* NYSTATIN-TRIAMCINOLONE 100,00* Apply 1 application to affect* VARENICLINE 0.5 MG (11)-1 MG * Per package instructions and * Patient not taking: Reported on 09/15/2019 VARENICLINE 1 MG TABLET Take 1 tablet by mouth twice * Patient not taking: Reported on 09/15/2019 LAMOTRIGINE 25 MG TABLET 150 mg to 200 mg daily Problem List As Of Date 09/15/2019 Noted Resolved ACNE NEC [L70.8] 03/20/2004 VIRAL WARTS NOS [B07.9] 03/20/2004 Diabetes (HCC) [E11.9] Prescriptions ordered this encounter Disp Refills Start End NYSTATIN-TRIAMCINOLONE 100,000 UNIT/* 15 g 1 09/15/2019 09/29/2019 Route: TOPICAL Sig: Apply 1 application to affected area twice daily for 14 days. Disposition: Return in about 4 weeks (around 10/13/2019) for virtual visit. Follow-up and Disposition History Recorded Encounter Status:Closed by JAZMINE SANDERSON MD on 09/15/19 [facility] HSV Cultureon 09-15-2019 Herpes Simplex Cult SEE NOTE Normal [facility] Comment on above: Result Comment: (NOT E) Culture Negative for Herpes Simplex Virus Performed by [facility] ([facility]: [place]), [address] [place] [id number] [email or web address], Freddie Eckert MD, Lab. Director Performed By: #### H SVCUL #### [facility] [address] [place] [address] [phone] Herpes Simplex Source VULVA Normal [facility] Comment on above: Performed By: #### H SVCUL #### [facility] [address] [place] [address] [phone] PROGRESSon 09-15-2019 PROGRESS HNO ID: [id number] Author: Jazmine Sanderson Service: ? Author Type: Physician Type: Progress Notes Filed: 09/15/2019 5:46 PM Note Text: 53 year old presents today with a c/o VAGINAL ITCHING Yes VAGINAL DISCHARGE Yes Discharge: malodorous DATE OF ONSET off and on for several months. She has previously been seen in [facility] tried and Date of use: nothing recently Past Hx of infection and Tx: nil Exam: Ext genitalia erythematous with excoriation consistent with scratching. There are 3 small nodules on her left labia Vault clean Cervix normal Vaginal culture obtained A/P Vaginitis Patient advised I will send AFFIRM and HSV Will give Nystatin and triamcinolone for now. Jazmine Sanderson MD [facility] PROGRESS HNO ID: [id number] Author: Bailee Deshpande Ma Service: ? Author Type: ? Type: Progress Notes Filed: 09/15/2019 5:46 PM Note Text: Fitting Room Inspector offered: Patient declines.SS Normal [facility] Complete Blood Count + Diffe morrison 09-09-2018 Basophils (Bld) [#/Vol] 0.02 {x10E9/L} See Below [facility] 5845 Work Phone: Comment on above: Reference Range: 0.0 0 - 0.10 Basophils/100 WBC (Bld) 0.2 % 0.0 - 2.0 [facility] a 5846 Work Phone: Eosinophils (Bld) [#/Vol] 0.49 {x10E9/L} See Below [facility] 5840 Work Phone: Comment on above: Reference Range: 0.0 0 - 0.70 Eosinophils/100 WBC (Bld) 3.8 % 0.0 - 6.0 [facility] a 5837 Work Phone: Erythrocyte distribution width (RBC) [Ratio] 12.1 % See Below [facility] 5825 Work Phone: Comment on above: Reference Range: 11. 5 - 14.5 Hematocrit (Bld) [Volume fraction] 47.9 % above high threshold See Below [facility] 5854 Work Phone: Comment on above: Reference Range: 36. 0 - 46.0 Hemoglobin (Bld) [Mass/Vol] 15.1 g/dL See Below [facility] a 58 Work Phone: Comment on above: Reference Range: 12. 0 - 16.0 Lymphocytes (Bld) [#/Vol] 3.60 {x10E9/L} See Below [facility] 5877 Work Phone: Comment on above: Reference Range: 1.2 0 - 4.80 Lymphocytes/100 WBC (Bld) 28.2 % See Below [facility] a 5812 Work Phone: Comment on above: Reference Range: 13. 0 - 44.0 MCHC (RBC) [Mass/Vol] 31.5 g/dL below low threshold See Below [facility] a 5885 Work Phone: Comment on above: Reference Range: 32. 0 - 36.0 MCV (RBC) [Entitic vol] 100 fL 80 - 100 [facility]38 Work Phone: Monocytes (Bld) [#/Vol] 0.56 {x10E9/L} See Below [facility] a 5840 Work Phone: Comment on above: Reference Range: 0.1 0 - 1.00 Monocytes/100 WBC (Bld) 4.4 % 2.0 - 10.0 [facility] a 5803 Work Phone: Neutrophils/100 WBC (Bld) 63.0 % See Below [facility] a 5849 Work Phone: Comment on above: Reference Range: 40. 0 - 80.0 Platelets (Bld) [#/Vol] 333 {x10E9/L} 150 - 450 [facility] a 5894 Work Phone: RBC (Bld) [#/Vol] 4.81 {x10E12/L} See Below [facility] a 5840 Work Phone: Comment on above: Reference Range: 4.0 0 - 5.20 WBC (Bld) [#/Vol] 0.0 {/100_WBC} 0.0-0.0 - [facility] 5831 Work Phone: WBC (Bld) [#/Vol] 12.8 {x10E9/L} above high threshold 4.4 - 11.3 [facility] a 5889 Work Phone: Complete Blood Count + Differential 0.4 % 0.0 - 0.9 [facility] a 5850 Work Phone: Comment on above: Percent differential counts (%) should be interpreted in the context of the absolute cell counts (cells/L). Complete Blood Count + Differential 8.03 {x10E9/L} above high threshold See Below -[facility] a 5872 Work Phone: Comment on above: Reference Range: 1.2 0 - 7.70 IO Lipid Panelon 09-09-2018 Cholesterol [Mass/Vol] 166 mg/dL -[facility] [employer] Work Phone: Cholesterol in LDL [Mass/Vol] 87 mg/dL [facility] [address] [employer] Work Phone: Triglyceride [Mass/Vol] 231 mg/dL -[facility] [address] [employer] Work Phone: IO Lipid Panel 33 mg/dL [facility] Work Phone: IO Lipid Panel 2.6 [facility] Work Phone: IO Lipid Panel 133 mg/dL [facility] Work Phone: Metabolic Panelon 09-09-2018 ALP [Catalytic activity/Vol] 53 U/L 33 - 110 [facility] a 5835 Work Phone: Anion gap [Moles/Vol] 15 mmol/L 10 - 20 [facility] a 5847 Work Phone: Bilirubin [Mass/Vol] 0.4 mg/dL 0.0 - 1.2 [facility] a 5850 Work Phone: Calcium [Mass/Vol] 10.8 mg/dL above high threshold 8.6 - 10.6 [facility] a 5850 Work Phone: [phone] Chloride [Moles/Vol] 103 mmol/L 98 - 107 [facility] a 5850 Work Phone: CO2 [Moles/Vol] 25 mmol/L 21 - 32 MP-[facility] a 5850 Work Phone: Creatinine [Mass/Vol] 0.81 mg/dL See Below [facility] a 5850 Work Phone: Comment on above: Reference Range: 0.5 0 - 1.05 Glucose [Mass/Vol] 199 mg/dL above high threshold 74 - 99 [facility] a 5850 Work Phone: Potassium [Moles/Vol] 4.3 mmol/L 3.5 - 5.3 [facility] a 5828 Work Phone: [phone] Protein [Mass/Vol] 7.3 g/dL 6.4 - 8.2 MP-Ind ependen [facility] a 5887 Work Phone: [phone] Sodium [Moles/Vol] 139 mmol/L 136 - 145 MP-Ind [facility] a 5829 Work Phone: [phone] Urea nitrogen [Mass/Vol] 15 mg/dL 6 - 23 [facility] a 5832 Work Phone: HbA1c (Bld) [Mass fraction] 8.1 % above high threshold 3.2-6.2 MP-[facility] [employer] [employer] Work Phone: Otheron 09-09-2018 Albumin BCP dye [Mass/Vol] 4.8 g/dL 3.4 - 5.0 MP-Independen ce [facility] a 5829 Work Phone: ALT With P-5'-P [Catalytic activity/Vol] 22 U/L 7 - 45 [facility] a 5835 Work Phone: Comment on above: Patients treated wit h Sulfasalazine may generate falsely decreased results for ALT. AST With P-5'-P [Catalytic activity/Vol] 21 U/L 9 - 39 [facility] a 5821 Work Phone: >60 >60 [facility] a 5827 Work Phone: Comment on above: CALCULATIONS OF ENIO MATED GFR ARE PERFORMED USING THE MDRD STUDY EQUATION FOR THE IDMS-TRACEABLE CREATININE METHODS. CLIN CHEM 2007;53:766-72 Albumin Ql (U) 10 mg/L MP-Indep[facility] den [facility] [employer] Work Phone: 500 mg/dL Abnormal Negative MP-[facility] [employer] Work Phone: Negative Negative [facility] [employer] Work Phone: 200 mg/dL [facility] [employer] Work Phone: 1.010 [facility] [employer] Work Phone: 6.0 5.0-8.0 [facility] [employer] Work Phone: 0.2 E.U./dL 0.20-1.00 [facility] [employer] Work Phone: Yellow See Below [facility] [employer] Work Phone: Comment on above: Reference Range: yel low, straw <30 mg/g Normal MP-[facility] [employer] Work Phone: Thyroidon 09-09-2018 TSH Qn 0.83 {mIU/L} See Below MP-Independ[facility] n [facility] 3074 Work Phone: Comment on above: Reference Range: 0.4 4 - 3.98 TSH testing is performed using different testing methodology at [facility] than at other [facility]. Direct result comparisons should only be made within the same method.. Patients receiving more than 5 mg/day of biotin may have interference in test results. A sample should be taken no sooner than eight hours after previous dose. Contact [phone] for additional information. Urinalysison 09-09-2018 Appearance (U) Clear clear -Marielena den [facility] [employer] Work Phone: Protein (U) [Mass/Vol] Negative Negative -Independen [facility] [address] [employer] Work Phone: Vitamin D 25-Hydroxyon 09-09 Calcidiol [Mass/Vol] 46 ng/mL -[facility] 2923 Work Phone: Comment on above: .DEFICIENCY: < 20 NG /MLINSUFFICIENCY: 20-29 NG/MLOPTIMUM LEVEL: 30-80 NG/MLPOSSIBLE TOXICITY: > 80 NG/MLTHIS ASSAY ACCURATELY QUANTIFIES THE SUM OFVITAMIN D3, 25-HYDROXY AND VIT D2,25-HYDROXY. CNCOon 04-02-2017 CNCO HNO ID: [id number]: Mammography CoordinatorService: (none)Author Type: PhysicianType: LetterFiled: 04/03/2017 11:32 PMNote Text:April 02, 2017 PID: [id number] Tyrell [id number] [place], [place] [address]Bbft Ms. Crenshaw,We are pleased to inform you that the results of your recent breastimaging exam on 04/02/2017 are normal. Early detection of cancer is veryimportant. We also understand recommendations regarding breast cancerscreening are controversial. Please discuss with your primary careprovider which strategy is best for you and whether a mammogram is rightfor you.Your imaging studies and report will be kept on file at [facility] part of your permanent medical record and are available for yourcontinuing care.Thank you for allowing us to help in meeting your health care needs.Sincerely,Dr. PhilipInterpreting [facility]. (Normal over 40) Normal [facility] DIAGNOSTIC BILon 018 [facility] DIAGNOSTIC SISI * * *Final Report* * *DATE OF EXAM: Apr 02 2017 1:36PM DALLIN 0620 - [facility] DIAGNOSTIC SISI / REASON: r92.8 abnormal mammogram * * * * Physician Interpretation * * * * #[id number] - [facility] DIAGNOSTIC BILBILATERAL DIGITAL DIAGNOSTIC MAMMOGRAM WITH CAD: 04/02/2017HISTORY: R92.8 Abnormal Mammogram /Bilateral Diagnostic Mammogram;Call Back/Abnormal Mammogram.RESULT:TECHNI QUE: The study was acquired using full field digital technology and interpreted from soft copy.Current study was also evaluated with a Computer Aided Detection (CAD).Comparison is made to exam dated: 01/14/2017 mammogram - [facility].There are scattered fibroglandular elements in both breasts.No significant masses, calcifications, or other findings are seen in either breast.There has been no significant interval change.IMPRESSION: BENIGN FINDINGThere is no mammographic evidence of malignancy. Return to annual mammogram screening schedule is recommended.Danielle Gutierrez/andrew:04/02/2017 13:53:11Imaging Technologist: Albertina MONCADA)(Tata), [facility] Hospitalletter sent: Normal over 40Mammogram BI-RADS: 2 Benign findingTranscriptionist : AndrewTranscribbolivar Date/Time: Apr 02 2017 1:27PDictated by : DANIELLE PHILIP MDThis examination was interpreted and the report reviewed and electronically signed by: DANIELLE PHILIP MD on Apr 02 2017 1:53PM [id number] CN Normal [facility] CNCOon 01-15-2017 CNCO HNO ID: [id number]: Mammography CoordinatorService: (none)Author Type: PhysicianType: LetterFiled: 01/17/2017 11:36 PMNote Text:January 15, 2017 PID: [id number] [address]. [id number] [place], [place] [address]Dkaj Ms. Crenshaw,Your recent breast imaging exam on 01/14/2017 showed a possible findingthat requires additional imaging studies for a complete evaluation. Mostsuch findings are probably benign (not cancer). You must have areferral/prescription from your physician when calling to schedule yourappointment. Please call to schedule an appointment forthese tests if you have not already done so.Your breast images and report will be kept on file here as part of yourpermanent medical record and are available for your continuing care.Thank you for allowing us to help in meeting your health care needs.Sincerely,Dr. Careyprejuan luis [facility] (Additional imaging) [facility] SCREENINGon 01-14-2017 [facility] SCREENING * * *Final Report* * * * SEE BOTTOM OF REPORT FOR ADDENDED TEXT * * *DATE OF EXAM: Jan 14 2017 7:32AM DALLIN 0581 - [facility] SCREENING / REASON: z00.00 screening health maintenance * * * * Physician Interpretation * * * * #[id number] - [facility] SCREENINGBILATERAL DIGITAL SCREENING MAMMOGRAM WITH CAD: 01/14/2017HISTORY: Z00.00 Screening Health Maintenance /Screening Mammogram - patient reports NO symptoms.RESULT:TECHNIQ UE: The study was acquired using full field digital technology and interpreted from soft copy.Current study was also evaluated with a Computer Aided Detection (CAD).Comparison is made to exam dated: 08/11/2013 mammogram.There are scattered fibroglandular elements in both breasts.There is an asymmetry in the right breast middle depth inferior region seen on the mediolateral oblique view only.There is an asymmetry in the left breast middle depth central to the nipple seen on the craniocaudal view only.No other significant masses or calcifications are seen in either breast.IMPRESSION: INCOMPLETE: NEEDS ADDITIONAL IMAGING EVALUATIONThe asymmetry in the right breast middle depth inferior region seen on the mediolateral oblique view only is indeterminate. Additional views are recommended.The asymmetry in the left breast middle depth central to the nipple seen on the craniocaudal view only is indeterminate. Additional views are recommended.Luis Whitney/penrad: 7 11:35:26Imaging Technologist: Disha MONCADA)(Tata), [facility] Hospitalletter sent: Additional Imaging NeededMammogram BI-RADS: 0 Incomplete: needs additional imaging evaluationTranscription ist: PenradTranscribe Date/Time: Jan 14 2017 7:21ADictated by : LUIS CARREON MDThilita examination was interpreted and the report reviewed and electronically signed by: LUIS CARREON MD on Jan 15 2017 11:35AM ESTThis document has been addended by: LUIS CARREON MD on Jan 15 2017 11:35AM [id number] CN Normal [facility] Vital Signs Date Time Vital Sign Value Performing Clinician Facility 12-22-2024 11:40-0400 Body height 177.[address] Josh Booker MD Work Phone: [facility] 12-22-2024 11:40-0400 Body mass index (BMI) [Ratio] 20 kg/m2 Dr. Josh Booker MD Work Phone: [facility] 12-22-2024 11:40-0400 Body temperature 97.1 [degF] Dr. Josh Booker MD Work Phone: [facility] 12-22-2024 11:40-0400 Body weight 63.[address] Josh Booker MD Work Phone: [facility] 12-22-2024 11:40-0400 Diastolic blood pressure 50 mm[Hg] Dr. Josh Booker MD Work Phone: [facility] 12-22-2024 11:40-0400 Heart rate 106 /min Dr. Josh Booker MD Work Phone: [facility] 12-22-2024 11:40-0400 Respiratory rate 16 /min Dr. Josh Booker MD Work Phone: [facility] 12-22-2024 11:40-0400 SaO2% (BldA) [Mass fraction] 98 % Dr. Josh Booker MD Work Phone: [facility] 12-22-2024 11:40-0400 Systolic blood pressure 94 mm[Hg] Dr. Josh Booker MD Work Phone: [facility] 10-13-2024 14:08-0400 Body height 177.[address] Josh Booker MD Work Phone: [facility] 10-13-2024 14:08-0400 Body mass index (BMI) [Ratio] 21.4 kg/m2 Dr. Josh Booker MD Work Phone: [facility] 10-13-2024 14:08-0400 Body temperature 96.9 [degF] Dr. Josh Booker MD Work Phone: [phone] [place] [address] 10-13-2024 14:08-0400 Body weight 67.[address] Josh Booker MD Work Phone: [facility] 10-13-2024 14:08-0400 Diastolic blood pressure 52 mm[Hg] Dr. Josh Booker MD Work Phone: [phone] [place] [address] 10-13-2024 14:08-0400 Heart rate 100 /min Dr. Josh Booker MD Work Phone: [facility] 10-13-2024 14:08-0400 Respiratory rate 14 /min Dr. Josh Booker MD Work Phone: [facility] 10-13-2024 14:08-0400 SaO2% (BldA) [Mass fraction] 95 % Dr. Josh Booker MD Work Phone: [facility] 10-13-2024 14:08-0400 Systolic blood pressure 96 mm[Hg] Dr. Josh Booker MD Work Phone: [facility] 09-09-2024 13:50-0400 Body height 177.[address] Josh Booker MD Work Phone: [facility] 09-09-2024 13:50-0400 Body mass index (BMI) [Ratio] 21.6 kg/m2 Dr. Josh Booker MD Work Phone: [facility] 09-09-2024 13:50-0400 Body weight 68.[address] Josh Booker MD Work Phone: [facility] 09-09-2024 13:50-0400 Diastolic blood pressure 57 mm[Hg] Dr. Josh Booker MD Work Phone: [facility] 09-09-2024 13:50-0400 Systolic blood pressure 121 mm[Hg] Dr. Josh Booker MD Work Phone: [facility] 10-07-2023 11:23-0400 Body mass index (BMI) [Ratio] 21.26 kg/m2 Shun Rivers DO Work Phone: [facility] 10-07-2023 11:23-0400 Body weight 67.22 kg Shun Rivers DO Work Phone: [facility] 10-07-2023 11:23-0400 Diastolic blood pressure 64 mm[Hg] Shun Rivers DO Work Phone: [facility] 10-07-2023 11:23-0400 Systolic blood pressure 94 mm[Hg] Shun Rivers DO Work Phone: [facility] 01-25-2022 14:11-0500 Body height 177.8 cm Shun Rivers Work Phone: -[facility] Work Phone: 01-25-2022 14:11-0500 Body mass index (BMI) [Ratio] 21.38 kg/m2 Shun Rivers Work Phone: -[facility] Work Phone: 01-25-2022 14:11-0500 Body surface area Derived from formula 1.84 m2 Shun Rivers Work Phone: [facility] Work Phone: 01-25-2022 14:11-0500 Body weight 67.59 kg Shun Rivers Work Phone: [facility] Work Phone: 01-25-2022 14:11-0500 Diastolic blood pressure 60 mm[Hg] Shun Rivers Work Phone: -[facility] Work Phone: 01-25-2022 14:11-0500 Systolic blood pressure 92 mm[Hg] Shun Rivers Work Phone: -[facility] Work Phone: 04-14-2020 12:51-0500 BMI (Body Mass Index) 21.38 kg/m2 Shun Rivers -[facility] Work Phone: 04-14-2020 12:51-0500 Body weight 67.59 kg Shun Rivers -[facility] Work Phone: 04-14-2020 12:51-0500 BP Diastolic 60 mm[Hg] Shun Rivers -[facility] Work Phone: Comment on above: Location: LUE; Position: Sitting 04-14-2020 12:51-0500 BP Systolic 102 mm[Hg] Shun Rivers -[facility] Work Phone: Comment on above: Location: LUE; Position: Sitting 04-14-2020 12:51-0500 BSA (Body Surface Area) 1.84 m2 Shun Rivers -[facility] Work Phone: 04-14-2020 12:51-0500 Height 177.8 cm Shun Rivers [facility] Work Phone: 09-24-2019 10:27-0400 BMI (Body Mass Index) 24.39 kg/m2 Shun Rivers [facility] Work Phone: 09-24-2019 10:27-0400 Body weight 77.11 kg Shun Rivers [facility] Work Phone: 09-24-2019 10:27-0400 BP Diastolic 78 mm[Hg] Shun Rivers -[facility] Work Phone: Comment on above: Location: LUE; Position: Sitting 09-24-2019 10:27-0400 BP Systolic 118 mm[Hg] Shun Rivers -[facility] Work Phone: Comment on above: Location: LUE; Position: Sitting 09-24-2019 10:27-0400 BSA (Body Surface Area) 1.95 m2 Shun Rivers -[facility] Work Phone: 09-24-2019 10:270400 Height 177.8 cm Shun Rivers -[facility] Work Phone: 09-09-2018 12:09-0400 BMI (Body Mass Index) 25.83 kg/m2 Shun Rivers -[facility] Work Phone: 09-09-2018 12:09-0400 Body weight 81.65 kg Shun Rivers -[facility] Work Phone: 09-09-2018 12:09-0400 BP Diastolic 60 mm[Hg] Shun Rivers -[facility] Work Phone: Comment on above: Location: LUE; Position: Sitting 09-09-2018 12:09-0400 BP Systolic 110 mm[Hg] Shun Rivers -[facility] Work Phone: Comment on above: Location: LUE; Position: Sitting 09-09-2018 12:09-0400 BSA (Body Surface Area) 2 m2 Shun Rivers -[facility] Work Phone: 09-09-2018 12:09-0400 Height 177.8 cm Shun Rivers -[facility] Work Phone: Encounters Encounter Date Encounter Type Care Provider Facility Start: 01-25-2025 ambulatory [place] Facility :[facility] Start: 12-22-2024 End: 12-22-[address] Silvia Frias MD -[facility] Work Phone: Start: 12-22-2024 End: 12-22-[address] Josh Booker MD Work Phone: -[facility] Start: 10-13-2024 End: 10-13-2024 Patient encounter procedure Dora Chaudhari [employer]ENDER-C -[facility] Work Phone: Start: 10-13-2024 End: 10-13-[address] Josh Booker MD Work Phone: [facility] Start: 09-09-2024 End: 09-09-2024 Patient encounter procedure Diane Perez NP-Candy -[facility] Work Phone: Start: 09-09-2024 End: 09-09-2024 Patient encounter status Diane SCHAFFER [facility] Start: 09-09-2024 End: 09-09-[address] Josh Booker MD Work Phone: [facility] Work Phone: Start: 10-07-2023 End: 10-07-2023 Patient encounter status Shun Rivers DO Work Phone: [facility] Work Phone: Start: 10-07-2023 End: 10-07-2023 Periodic preventive med est patient 40-64yrs Shun Rivers DO Work Phone: [facility] Comment on above: Wellness examination (Primary Dx); Screening for deficiency anemia; Encounter for screening for cardiovascular disorders; Screening for thyroid disorder; Cobalamin deficiency; Vitamin D deficiency; Type 2 diabetes mellitus with other specified complication, unspecified 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 (Multi); Hyperlipidemia, unspecified hyperlipidemia type; Irritable bowel syndrome without diarrhea; Irritable bowel syndrome, unspecified type Start: 10-07-2023 End: 10-07-2023 ambulatory SHUN RIVERS [facility] Start: 10-07-2023 End: 07-22-2024 Encounter for general adult medical examination without abnormal findings SHUN RIVERS [facility] Start: 09-30-2023 End: 09-30-2023 ambulatory SHUN RIVERS [facility] Start: 09-30-2023 End: 09-30-2023 Encounter for general adult medical examination without abnormal findings SHUN RIVERS [facility] Start: 06-07-2022 End: 06-07-2022 ambulatory [facility] Work Phone: Start: 06-07-2022 End: 06-07-2022 Patient encounter procedure [facility]-Laboratory, Specimen Start: 01-25-2022 Periodic preventive med est patient 40-64yrs Shun Rivers Work Phone: -[facility] Work Phone: Start: 01-25-[address]un [address] Nina Facility:[id number] Start: 01-09-2022 AUDIT Shun Rivers Work Phone: [facility] Work Phone: Start: 12-28-2021 PHYSICAL, Provider: Shun Rivers, Status: Pen, Time: 2:00 PM Shun Rivers Work Phone: -[facility] [facility] Work Phone: Start: 12-27-2021 Chart Update Shun Rivers Work Phone: [facility] [facility] Work Phone: Start: 12-20-2021 AUDIT Shun Rivers Work Phone: [facility] Work Phone: Start: 09-15-2021 Rx Renewal Suhn Rivers Work Phone: [facility] [facility] Work Phone: Start: 09-14-2021 Rx Renewal Shun Rivers Work Phone: [facility] Work Phone: Start: 07-19-2021 AUDIT Shun Rivers Work Phone: [facility] Work Phone: Start: 11-29-2020 AUDIT Shun Rivers Work Phone: [facility] Work Phone: Start: 04-14-2020 [facility] Start: 03-31-2020 Patient [facility] Work [facility]: Start: 02-08-2020 Patient encounter procedure [facility] Work Phone: Start: 02-02-2020 Patient encounter procedure [facility] Work Phone: Start: 12-09-2019 Patient encounter procedure Shun Rivers [facility] Work Phone: Start: 09-24-2019 Patient encounter procedure Shun Rivers [facility] Work Phone: Start: 09-09-2018 Patient encounter procedure Shun Rivers [facility] Work Phone: Start: 09-06-2017 Patient encounter procedure Shun Rivers [facility] Work Phone: Start: 04-02-2017 Ambulatory NEL Gupta, (CN P) [facility] Start: 01-14-2017 Ambulatory SHUN RIVERS [facility] Start: 11-06-2016 Patient encounter procedure Shun Rivers [facility] Work Phone: Procedures Date Procedure Procedure Detail Performing Clinician Start: 09-30-2023 Lipid 1996 panel - S francisco j or Plasma Shun Rivers DO Work Phone: Start: 05-20-2020 Colonoscopy Shun Rivers DO Work Phone: Start: 09-24-2019 Noninvasive colorect al cancer DNA and occult blood screening [Presence] in Stool Shun Rivers Start: 09-24-2019 Ultrasound AAA Screening Shun Rivesr Start: 10-26-2018 Colonoscopy Shun Ninalita Start: 09-09-2018 25 hydroxy includes fractions if performed Shun Rivers Start: 09-09-2018 Blood count complete auto&auto difrntl wbc Shun Ninalita Start: 09-09-2018 Colonoscopy Shun Rivers Start: 09-09-2018 Comprehensive metabo lic 2000 panel Shun Rivers Start: 09-09-2018 TSH WITH REFLEX TO F REE T4 IF ABNORMAL Shun Rivers Plan of Treatment Date Care Activity Detail Author Start: 05-20-2030 Screening for malignant neoplasm of colon [facility] Start: 12-22-2024 Urine microalbumin/creatinine ratio measurement [facility] Start: 12-22-2024 Vitamin D, 25-hydroxy measurement [facility] Start: 10-07-2024 Yearly Adult Physical Yearly Adult Physical [facility] Start: 09-29-2024 Lipid panel Lipid Panel [facility] Start: 09-09-2024 Patient referral [facility] Work Phone: Start: 12-31-2023 Hemoglobin A1c measurement Diabetes: Hemoglobin A1C [facility] Start: 2023 Influenza vaccination Influenza Vaccine (#1) [facility] Start: 11-29-2022 Screening for malignant neoplasm of colon FIT-DNA (Cologuard) [facility] Start: 11-16-2022 COVID-19 Vaccine ( season) COVID-19 Vaccine ( season) [facility] Start: 01-25-2022 PHYSICAL, Provider: Shun Rivers, Status: Pen, Time: 2:00 PM PHYSICAL, Provider: Shun Rivers, Status: Pen, Time: 2:00 PM [facility] Work Phone: Start: 2016 Zoster Vaccines (1 of 2) Zoster Vaccines (1 of 2) [facility] Start: 2006 Screening for malignant neoplasm of breast Mammogram [facility] Start: 1988 DTaP/Tdap/Td Vaccines (1 - Tdap) DTaP/Tdap/Td Vaccines (1 - Tdap) [facility] Start: 11-18-1987 Screening for malignant neoplasm of cervix [facility] Start: 1985 Hepatitis B Vaccines (1 of 3 - 19+ 3-dose series) Hepatitis B Vaccines (1 of 3 - 19+ 3-dose series) [facility] Start: 1985 Urine screening for protein Diabetes: Urine Protein Screening [facility] Start: 1984 Hepatitis C screening Hepatitis C Screening [facility] Start: 1976 Diabetic foot examination Diabetes: Foot Exam [facility] Start: 1976 Glaucoma screening Diabetes: Retinopathy Screening [facility] Start: 1972 Pneumococcal Vaccine: Pediatrics (0 to 5 Years) and At-Risk Patients (6 to 64 Years) (1 of 2 - PCV) Pneumococcal Vaccine: Pediatrics (0 to 5 Years) and At-Risk Patients (6 to 64 Years) (1 of 2 - PCV) [facility] Start: 11-18-1967 MMR Vaccines (1 of 1 - Standard series) MMR Vaccines (1 of 1 - Standard series) [facility] Start: 1966 HIV screening HIV Screening [facility] Start: 1966 Screening for malignant neoplasm of colon [facility] CBC W Auto Different ial panel - Blood [facility] Comprehensive metabo lic 1999 panel - Serum or Plasma [facility] Hemoglobin A1c/Hemoglobin.total in Blood [facility] Lipid 1996 panel - S francisco j or Plasma [facility] Path report.final Dx Spec [facility] Patient referral [facility] Work Phone: Vitamin B12 measurement [facility] XR Cervical spine 4 or 5 Views [facility] Immunizations Immunization Date Immunization Notes Care Provider Fa yulia 02-05-2019 influenza, injectabl e, quadrivalent, preservative free Shun Rivers Work Phone: [facility] Work Phone: 02-05-2019 influenza virus vaccine, unspecified formulation Shun Rivers DO Work Phone: [facility] Work Phone: Payers Date Payer Category Payer Self-pay 2017 Unknown 2017 Unknown [id number] 1965 Unknown [id number] 1966 Unknown [id number] 1966 Unknown [id number] Unknown [id number] Unknown [id number] [id number] Unknown [id number] Unknown [id number] [id number] Social History Date Type Detail Facility Current smoker Current smoker [facility] Work Phone: Start: 1965 Sex Assigned At Female W [facility] Start: 10-07-2023 End: 12-22-2024 Tobacco smoking status MIIS Smokes tobacco daily [facility] Work Phone: History of tobacco use Cigarette Smoker [facility] Work Phone: Start: 10-07-2023 Tobacco use and exposure Smokeless tobacco non-user [facility] Work Phone: Start: 10-07-2023 Alcoholic beverage intake Lifetime non-drinker (finding) [facility] Work Phone: Start: 1965 Sex assigned at Not on file [facility] Work Phone: Gender identity Not on file [facility] Start: 09-27-2023 End: 10-07-2023 Exposure to SARS-CoV-2 (event) Not sure [facility] NEGATED: Highlighted row - - [facility] Work Phone: Functional Status Date Assessment Result Facility NEGATED: Highlighted row Functional performance Functional status health issues are not documented Disease [facility] Work Phone: Mental Status Date Assessment Result Facility NEGATED: Highlighted row Cognitive function [Interpretation] Cognitive status health issues are not documented Disease [facility] Work Phone: Evaluation note 09-09-2024 Note Date & Type Note Facility 09-09-2024 Evaluation note Diagnosis Onset Date Resolution Mixed incontinence urge and stress acute September 09, 2024 1:47pm Vaginal atrophy acute August 1:47pm Encounter for routine gynecological examination noneactive September 09, 2024 1:47pm [facility] [employer] [facility] Work Phone: Evaluation note 09-09-2024 Note Date & Type Note Facility 09-09-2024 Evaluation note Diagnosis Onset Date Resolution Mixed incontinence urge and stress acute September 09, 2024 1:47pm Vaginal atrophy acute August 1:47pm Encounter for routine gynecological examination noneactive September 09, 2024 1:47pm Diabetes acute October 13 1:51pm Frequent headaches acute September 162024 1:51pm Hyperlipidemia acute October 13, 2024 1:51pm Encounter to establish care resolved October 13, 2024 1:51pm Flu vaccine refused acute Octob er 2024 11:03am Mixed incontinence urge and stress acute December 22 11:03am Establishing care with new doctor, encounter for noneactive December 22 11:03am Type 2 diabetes mellitus noneactive December 22, 2024 11:03am Chronic daily headache noneactive Oc tober 2024 11:03am Vitamin D deficiency noneactive Octo bee 2024 11:03am [facility] [employer] [facility] Work Phone: History of Present illness Narrative 10-07-2023 Shun Rivers DO - 10/07/2023 11:30 AM EDT Note Date & Type Note Facility 10-07-2023 History of Present illness Narrative Subjective Patient ID: Ariela Crenshaw is a 57 y.o. female who presents for Annual Exam. HPI comes in for wellness visit. Review of Systems Constitutional: NO F, chills, or sweats Eyes: no blurred vision or visual disturbance ENT: no hearing loss, no congestion, no nasal discharge, no hoarseness and no sore throat. Cardiovascular: no chest pain, no edema, no palps and no syncope. Respiratory: no cough,no s.o.b. and no wheezing Gastrointestinal: no abdominal pain, No C/D no N/V, no blood in stools Genitourinary: no dysuria, no change in urinary frequency, no urinary hesitancy and no feelings of urinary urgency. Musculoskeletal: no arthralgias, no back pain and no myalgias. Integumentary: no new skin lesions and no rashes. Neurological: no difficulty walking, no headache, no limb weakness, no numbness and no tingling. Psychiatric: no anxiety, no depression, no anhedonia and no substance use disorders. Endocrine: no recent weight gain and no recent weight loss. Hematologic/Lymphatic: no tendency for easy bruising and no swollen glands. Objective BP 94/64 (BP Location: Right arm, Patient Position: Sitting, BP Cuff Size: Adult) Wt 67.2 kg (148 lb 3.2 oz) BMI 21.26 kg/m Physical Exam gen- a & o x 3, nad, pleasant heent- eomi, perrla, ear canals patent, TM's non-erythematous, no fluid, frontal and maxillary sinus's nontender neck- supple, nontender, no palpable or enlarged nodes, no thyromegaly heart- rrr, no murmurs lungs- cta b/l , no w/r/r chest- symmetric, nontender ab- soft, nontender, no palpable organomegaly, postive bowel sounds ex's- no c/c/e neuro- nursing tech 2-12 grossly intact, full sensation and strength in all extremities Assessment/Plan 1. Wellness visit. No concerns on exam. Screening labs reviewed. Colonoscopy still up-to-date. Mammogram is tomorrow. 2. Diabetes outstanding control continue Ozempic. 3. She has been without meds for 4 months cholesterol panel is very poor. Will go back on Crestor 40 mg before bed. 4. Issues with some neck pain. She will start with chiropractor at this time documented in this encounter [facility] Work Phone: Instructions 10-07-2023 Patient Instructions Note Date & Type Note Facility 10-07-2023 Instructions Shun Rivers DO - 10/07/2023 11:30 AM EDT 1. Wellness visit. No concerns on exam. Screening labs reviewed. Colonoscopy still up-to-date. Mammogram is tomorrow. 2. Diabetes outstanding control continue Ozempic. 3. She has been without meds for 4 months cholesterol panel is very poor. Will go back on Crestor 40 mg before bed. 4. Issues with some neck pain. She will start with chiropractor at this time documented in this encounter [facility] Work Phone: Evaluation note Note Date & Type Note Facility 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) Hyperlipidemia, unspecified hyperlipidemia type Irritable bowel syndrome, unspecified type documented in this encounter [facility] Work Phone: Evaluation note Note Date & Type Note Facility Evaluation note Diagnosis Onset Date Resolution Mixed incontinence urge and stress acute September 09, 2024 1:47pm Vaginal atrophy acute August 1:47pm Encounter for routine gynecological examination noneactive September 09, 2024 1:47pm [facility] Work Phone: History of Present illness Narrative Note Date & Type Note Facility History of Present illness Narrative 56-year-old female for wellness visit. -[facility] Work Phone: Hospital Discharge instructions Note Date & Type Note Facility Hospital Discharge instructions Ambulatory OrdersUrogynecology Location: None Selected [facility] Work Phone: Summary Purpose Family History No Family History Records Found Mother Name Dates Details Family history of hyperlipid emia(V18.19, Z83.438) Status:Active Father Name Dates Details Family history of cardiac di sorder(V17.49, Z82.49) Status:Active Family history of hypertensi on(V17.49, Z82.49) Status:Active Mother Name Dates Details Family history of hyperlipid emia(V18.19, Z83.438) Status:Active Father Name Dates Details Family history of cardiac di sorder(V17.49, Z82.49) Status:Active Family history of hypertensi on(V17.49, Z82.49) Status:Active Mother Name Dates Details Family history of hyperlipid emia(V18.19, Z83.438) Status:Active Father Name Dates Details Family history of hypertensi on(V17.49, Z82.49) Status:Active Family history of cardiac di sorder(V17.49, Z82.49) Status:Active Mother Name Dates Details Family history of hyperlipid emia(V18.19, Z83.438) Status:Active Father Name Dates Details Family history of cardiac di sorder(V17.49, Z82.49) Status:Active Family history of hypertensi on(V17.49, Z82.49) Status:Active Mother Name Dates Details Family history of hyperlipid emia(V18.19, Z83.438) Status:Active Father Name Dates Details Family history of cardiac di sorder(V17.49, Z82.49) Status:Active Family history of hypertensi on(V17.49, Z82.49) Status:Active Mother Name Dates Details Family history of hyperlipid emia(V18.19, Z83.438) Status:Active Father Name Dates Details Family history of cardiac di sorder(V17.49, Z82.49) Status:Active Family history of hypertensi on(V17.49, Z82.49) Status:Active Mother Name Dates Details Family history of hyperlipid emia(V18.19, Z83.438) Status:Active Father Name Dates Details Family history of hypertensi on(V17.49, Z82.49) Status:Active Family history of cardiac di sorder(V17.49, Z82.49) Status:Active Mother Name Dates Details Family history of hyperlipid emia(V18.19, Z83.438) Status:Active Father Name Dates Details Family history of hypertensi on(V17.49, Z82.49) Status:Active Family history of cardiac di sorder(V17.49, Z82.49) Status:Active Mother Name Dates Details Family history of hyperlipid emia(V18.19, Z83.438) Status:Active Father Name Dates Details Family history of cardiac di sorder(V17.49, Z82.49) Status:Active Family history of hypertensi on(V17.49, Z82.49) Status:Active Unknown Family Member Name Dates Details Family history of hyperlipid emia: Mother(V18.19, Z83.438) Status:Active Family history of cardiac di sorder: Father(V17.49, Z82.49) Status:Active Family history of hypertensi on: Father(V17.49, Z82.49) Status:Active Unknown Family Member Name Dates Details Family history of hyperlipid emia: Mother(V18.19, Z83.438) Status:Active Family history of cardiac di sorder: Father(V17.49, Z82.49) Status:Active Family history of hypertensi on: Father(V17.49, Z82.49) Status:Active Unknown Family Member Name Dates Details Family history of hyperlipid emia: Mother(V18.19, Z83.438) Status:Active Family history of cardiac di sorder: Father(V17.49, Z82.49) Status:Active Family history of hypertensi on: Father(V17.49, Z82.49) Status:Active Unknown Family Member Name Dates Details Family history of hyperlipid emia: Mother(V18.19, Z83.438) Status:Active Family history of cardiac di sorder: Father(V17.49, Z82.49) Status:Active Family history of hypertensi on: Father(V17.49, Z82.49) Status:Active Unknown Family Member Name Dates Details Family history of hyperlipid emia: Mother(V18.19, Z83.438) Status:Active Family history of cardiac di sorder: Father(V17.49, Z82.49) Status:Active Family history of hypertensi on: Father(V17.49, Z82.49) Status:Active Unknown Family Member Name Dates Details Family history of hyperlipid emia: Mother(V18.19, Z83.438) Status:Active Family history of cardiac di sorder: Father(V17.49, Z82.49) Status:Active Family history of hypertensi on: Father(V17.49, Z82.49) Status:Active Relationship Condition Age at Onset Recorded Date/T pinky Not Specified Cardiac disease Unknown Relationship Condition Age at Onset Recorded Date/T pinky Not Specified Cardiac disease Unknown mother Depression Unknown Diabetes mellitus Unknown Hypertension Unknown High blood cholesterol Unknown Advance Directives No Advanced Directives Records FoundNo Advanced Directives Records FoundNo Advanced Directives Records FoundNo Advanced Directives Records FoundNo Advanced Directives Records FoundNo Advanced Directives Records FoundNo Advanced Directives Records Found Chief Complaint CPE Chief Complaint and Reason for Visit Chief Complaint 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, 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 1:47 pm Reason for Visit Admit Date Mixed incontinence urge and stress September 09, 2024 1:47pm Vaginal atrophy September 09, 2024 1:47 pm Encounter for routine gynecological exam ination September 09, 2024 1:47pm Chief Complaint 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, 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 pm EST NEW PT - FOR MEDS - W ALTAGRACIA IN DecOctober 13, 2024 1:51pm Chief Complaint 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, 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 1:47 pm EST NEW PT - FOR MEDS - W [place]TAGR[place] IN DecOctober 13, 2024 1:51pm [employer]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 SENT December 22, 2024 1 1:03am Reason for Visit Admit Date Mixed incontinence urge and stress September 09, 2024 1:47pm Vaginal atrophy September 09, 2024 1:47 pm Encounter for routine gynecological exam ination September 09, 2024 1:47pm Diabetes October 13, 2024 1:51 pm Frequent headaches October 13, 2024 1:51 pm Hyperlipidemia October 13, 2024 1:51 pm Encounter to establish care October 13 1:51pm Flu vaccine refused December 22, 2024 11 :03am Mixed incontinence urge and stress Octob er 2024 11:03am Establishing care with new doctor, negro berrios for December 22, 2024 11:03am Type 2 diabetes mellitus December 22 11:03am Chronic daily headache December 22, 2024 11:03am Vitamin D deficiency December 22, 2024 1 1:03am Additional Source Comments INFORMATION SOURCE (unrecogn ized section and content) DATE CREATED AUTHOR 09/10/2017 [facility] DATE CREATED AUTHOR AUTHOR'S ORGANIZ ATION 10/08/2019 [facility] DATE CREATED AUTHOR AUTHOR'S ORGANIZ ATION 01/26/2022 [facility] DATE CREATED AUTHOR AUTHOR'S ORGANIZ ATION 01/26/2022 [employer] DATE CREATED AUTHOR AUTHOR'S ORGANIZ ATION 10/07/2023 [facility] DATE CREATED AUTHOR AUTHOR'S ORGANIZ ATION 10/09/2023 [facility] DATE CREATED AUTHOR AUTHOR'S ORGANIZ ATION 01/28/2025 [facility] Care Teams (unrecognized sec tion and content) Team Status: Active Member Role Status Dates Dr. Josh Booker MD Primary Care Provider Active Team Status: Inactive Member Role Status Dates Dr. 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 [address] [id number] PCP - General 09/23/17 Team Status: Inactive Member Role Status Dates Dr. Josh Booker MD Primary Care Provider Active Start: September 09, 2024 End: September 09, 2024 Dr. Josh Booker MD Referring Provider Active Start: September 09, 2024 End: September 09, 2024 SARBJIT Castro Attending Provider Active Start: September 09, 2024 End: September 09, 2024 Team Status: Active Member Role/Relationship Status Dates Dr. Josh Booker MD Primary Care Provider Active Team Status: Inactive Member Role/Relationship Status Dates Dr. Josh Booker MD Primary Care Provider Active Start: September 09, 2024 End: September 09, 2024 Dr. Josh Booker MD Referring Provider Active Start: September 09, 2024 End: September 09, 2024 SARBJIT Castro Attending Provider Active Start: September 09, 2024 End: September 09, 2024 Team Status: Inactive Member Role/Relationship Status Dates Dr. Josh Booker MD Primary Care Provider Active Start: October 13, 2024 End: October 13, 2024 Dr. Josh Booker MD Referring Provider Active Start: October 13, 2024 End: October 13, 2024 SARBJIT Smalls Attending Provider Active Start: October 13, 2024 End: October 13, 2024 Team Status: Active Member Role/Relationship Status Dates Dr. Josh Booker MD Primary care physician Active Team Status: Inactive Member Role/Relationship Status Dates Dr. Josh Booker MD Primary care physician Active Start: September 09, 2024 End: September 09, 2024 Dr. Josh Booker MD Referring Provider Active Start: September 09, 2024 End: September 09, 2024 SARBJIT Castro Attending physician Active Start: September 09, 2024 End: September 09, 2024 Team Status: Inactive Member Role/Relationship Status Dates Dr. Josh Booker MD Primary care physician Active Start: October 13, 2024 End: October 13, 2024 Dr. Josh Booker MD Referring Provider Active Start: October 13, 2024 End: October 13, 2024 SARBJIT Smalls Attending physician Active Start: October 13, 2024 End: October 13, 2024 Team Status: Inactive Member Role/Relationship Status Dates Dr. Josh Booker MD Primary care physician Active Start: December 22, 2024 End: December 22, 2024 Dr. Josh Booker MD Referring Provider Active Start: December 22, 2024 End: December 22, 2024 Dr. Silvia Frias MD Attending physician Active Start: December 22, 2024 End: December 22, 2024 Goals (unrecognized section and content) Goals may be documented in a n alternate sectionGoals may be documented in an alternate sectionGoals may be documented in an alternate sectionGoals may be documented in an alternate section Reason for Visit (unrecogniz ed section and content) Reason Comments Annual Exam FOR RECORDS PERTAINING TO PATIENTS WHO ARE OR HAVE BEEN ENROLLED IN A CHEMICAL DEPENDENCY/SUBSTANCEABUSE PROGRAM, SOME INFORMATION MAY BE OMITTED. This clinical summary was aggregated from multiple sources. Caution should be exercised in using it in the provision of clinical care. This summary normalizes information from multiple sources, and as a consequence, information in this document may materially change the coding, format and clinical context of patient data. In addition, data may be omitted in some cases. CLINICAL DECISIONS SHOULD BE BASED ON THE PRIMARY CLINICAL RECORDS. [facility] [employer] [facility]. provides no warranty or guarantee of the accuracy or completeness of information in this document.
--- NOTE | 2025-02-25 07:01 | MRI_ITS ---
PROCEDURE: BRAIN W/WO CONTRAST 02/25/2025 REASON FOR EXAM: CHRONIC HEADACHE TECHNIQUE: Procedure Code: MRIBRWW Modality: MR Procedure: BRAIN W/WO CONTRAST Multiplanar and multisequence images were obtained. CONTRAST: Clariscan VOLUME: 13 mL COMPARISON: None. FINDINGS: There is a normal sulcal pattern and gyral configuration. There is no evidence of acute intracranial hemorrhage or infarction. The ferguson-white differentiation is well preserved. There is no evidence of restricted diffusion. The ventricles and basilar cisterns are normal. There are normal flow voids demonstrated in the recognized intracranial vessels. The cerebellum and brainstem are unremarkable. The cerebellar pontine angles are normal. The craniovertebral junction is normal. There is a partially empty sella turcica. The suprasellar region is normal. The orbits and retro-orbital regions are unremarkable. There is S shaped nasal septal deviation. There is a left-sided nasal spur extending into the inferior meatus. There is mild diffuse mucosal thickening of the paranasal sinuses there are multiple fluid-filled mastoid air cells bilaterally. There is normal bone marrow signal in the skull base and calvarium. There is no abnormal intracranial contrast enhancement. MRI/Brain W/WO Contrast IMPRESSION: 1. There is a partially empty sella turcica essentially a normal variant. 2. MR imaging of the brain with and without contrast is otherwise unremarkable . 3. Mild pansinusitis and bilateral mastoiditis. Reading Location: [place] [id number]
--- NOTE | 2025-02-25 07:01 | MRI_ITS ---
PROCEDURE: SPINE CERVICAL (ROUTINE) 02/25/2025 REASON FOR EXAM: NECK PAIN, CHRONIC HEADACHES TECHNIQUE: Procedure Code: MRISPC Modality: MR Procedure: SPINE CERVICAL (ROUTINE) Multiplanar and multisequence images were obtained without IV contrast administration. COMPARISON: None FINDINGS: C2-C3: Vertebral bodies: Negative. Disk Space: Negative. Negative for Modic changes. Facet Joints: Mild bilateral facet joint hypertrophy. Neural foramina: Negative for neural foraminal narrowing Spinal Canal: Negative for central spinal narrowing. C3-C4: Vertebral bodies: Negative. Disk Space: Disc desiccation mild loss of disc height. Mild diffuse disc bulge mild posterior osteophyte disc complex. Negative for Modic changes. Facet Joints: Mild bilateral facet joint hypertrophy. Neural foramina: Moderate bilateral neural foraminal narrowing Spinal Canal: Slight central spinal narrowing. C4-C5: Vertebral bodies: Negative. Disk Space: Disc desiccation moderate loss of disc height. Negative for Modic changes. Facet Joints: Moderate bilateral facet joint hypertrophy. Neural foramina: Moderate right mild left neural foraminal narrowing Spinal Canal: Mild right central spinal narrowing. C5-C6: Vertebral bodies: Negative. Disk Space: Disc desiccation mild loss of disc height mild posterior osteophyte disc complex. Negative for Modic changes. Facet Joints: Moderate bilateral facet joint hypertrophy. Neural foramina: Moderate left and mild right neural foraminal narrowing Spinal Canal: Mild left central spinal narrowing. C6-C7: Vertebral bodies: Negative. Disk Space: Disc desiccation mild loss of disc height. Mild diffuse disc bulge negative for Modic changes. Facet Joints: Mild bilateral facet joint hypertrophy. Neural foramina: Negative for neural foraminal narrowing Spinal Canal: Negative for central spinal narrowing. Spinal cord: Spinal cord negative. Posterior fossa and cerebellar tonsils negative. MRI/Spine Cervical (Routine) IMPRESSION: Multilevel degenerative change of the cervical spine most prominent asymmetric to the right at C4-C5 and asymmetric to the left at C5-C6. Moderate bilateral neural foraminal narrowing at C3-C4 as above. Reading Location: [id number]
== END | disposition home or self-care (01) ==
PROVIDERS: PCP Internal Medicine; Referring Provider Internal Medicine; Visit Provider Internal Medicine
DX: R51.9 Headache, unspecified (principal); M54.2 Cervicalgia
CPT/HCPCS: 70553; 72141; A9575